=== PATIENT | male | born 1980 | race Caucasian/White ===

== ENCOUNTER 2017-03-14 17:57 | Emergency (ER) | payer OTHER ==
[~2017-03-14] VITALS: Ht 182.9 cm; Wt 136.5 kg
[~2017-03-14 17:57] MED LIST: ALDACTONE25 MG PO; BACTRIM DS TAB1 EACH PO; BUPRENORPHINE HC8 MG SL; CLINDAMYCIN HC300 MG PO; CYMBALTA20 MG; DOXYCYCLINE HY100 MG PO; EFFEXOR XR150 MG PO; EFFEXOR XR37.5 MG PO; HYDROCODON-ACE1 EA10 PO; HYDROCODON-ACE1 EAC3 PO; HYDROCODONE-IB1 EACH PO; IBUPROFEN800 MG PO; KEFLEX500 MG PO; KLONOPIN1 MG PO; LASIX20 MG PO; MELOXICAM15 MG PO; NAPROSYN500 MG PO; NORCO 5-325 TA1 EACH PO; PERCOCET 5-3251 EACH PO; PREDNISONE10 MG PO; PREDNISONE20 MG PO; SPIRONOLACTONE100 MG PO; VENLAFAXINE HCL75 MG PO; VICOPROFEN 2001 EACH PO
[2017-03-14] MEDS ORDERED: SULFAMETHOXAZO1 EAC1 PO (20:41)
[2017-03-14] MEDS ORDERED: CEPHALEXIN500 MG PO (22:53)
== END 2017-03-14 23:03 | disposition home or self-care (01) ==
LOC: ED 17:57
DX: S61.432A Puncture wound without foreign body of left hand, initial encounter (principal); L08.9 Local infection of the skin and subcutaneous tissue, unspecified; F41.9 Anxiety disorder, unspecified; F32.9 Major depressive disorder, single episode, unspecified; Z86.19 Personal history of other infectious and parasitic diseases; Z91.013 Allergy to seafood; Z88.5 Allergy status to narcotic agent; Z79.899 Other long term (current) drug therapy; Z86.14 Personal history of Methicillin resistant Staphylococcus aureus infection; X58.XXXA Exposure to other specified factors, initial encounter
CPT/HCPCS: 73130; 99283

== ENCOUNTER 2017-05-01 09:30 | Inpatient (IN) | payer OTHER ==
[~2017-05-01] VITALS: Ht 182.9 cm; Wt 136.0 kg
[~2017-05-01 09:30] MED LIST changes: +CEPHALEXIN500 MG PO; +SULFAMETHOXAZO1 EAC1 PO
--- NOTE | 2017-05-01 13:38 | NUR ---
REPORT RECEIVED FROM FREDI SMITH IN E.D.
--- NOTE | 2017-05-01 14:29 | NUR ---
PATIENT ADMITTED TO ROOM 119. IV FLAGYL INFUSING TO RIGHT ARM IV. VITALS ARE STABLE. PATIENT IS AFEBRILE, VOIDING TO URINAL. RIGHT LEG IS ELEVATED ON THREE PILLOWS. RIGHT CALF REDNESS IS OUTLINED, HEAT PACK PLACED TO REDNESS. PATIENT REPORTS 10/10 RIGHT CALF PAIN AND REQUESTED PAIN MEDICATION FROM DR. ACEVES. PATIENT ORIENTED TO CALL LIGHT AND ORDERING FOOD.
--- NOTE | 2017-05-01 15:59 | NUR ---
REPORT FROM KYRA RAI AT THIS TIME
--- NOTE | 2017-05-01 16:32 | NUR ---
Vancomycin per pharmacy, 1750mg IV q 8 hrs. Draw for vancomycin trough level 05/02/17 at 1630. (Prior to 5th dose)
--- NOTE | 2017-05-01 17:31 | NUR ---
PT ADMITTED THIS AFTERNOON FORM E.D., RIGHT LEG ELEVATED ON THREE PILLOWS, NORCO MANAGING PAIN AT TOLERABLE LEVEL AT THIS TIME. PICC LINE BEING PLACED AT THIS TIME BY HIREN SUE RN. HE HAS BEEN AFEBRILE, V/S STABLE. AGGRESSIVE ABX THERAPY. RED AREA AROUND WOUND TO RIGHT CALF OUTLINED ON ADMISSION
--- NOTE | 2017-05-01 18:56 | NUR ---
ASKED BY DR. ACEVES TO EVALUATE PATIENT FOR POTENTIAL PICC LINE PLACEMENT. AFTER REVIEWING PT'S CHART AND INTERVIEWING THE PATIENT, NO ABSOLUTE CONTRAINDICATIONS WERE IDENTIFIED. PT WAS ABLE TO SIGN THE CONSENT. PT DOES REPORT BEING A FORMER IV DRUG USER AND STATES HE HAS "HORRIBLE VEINS IN HIS ARMS". PT REPORTS NOT HAVING USED IV DRUGS IN ABOUT A YEAR. RIGHT ARM EVALUATED AND BOTH THE BRACHIAL AND THE BASILIC VEIN WERE NOTED TO BE GREATER THAN 8 FR USING SITE [employer] U/[employer]. ULTIMATELY THE BASILIC VEIN WAS CHOSEN. 4FR SINGLE LUMEN PICC WAS CHOSEN FOR THIS PATIENT. IV ACCESS WAS OBTAINED WITHOUT DIFFICULTY. GUIDEWIRE INSERTED INTO VEIN WITHOUT DIFFICULTY. [employer] GUIDE WAS USED AND INITIAL ADVANCEMENT OF CATHETER SHOWED THE CATHETER TIP TO BE HEADING UP, INSTEAD OF THE USUAL TURNED DOWN POSITION. PICC WAS PULLED BACK AND RE-INTRODUCED AFTER HAVING PATIENT PUT HIS CHIN TO HIS RIGHT EAR. THIS TIME ON SHERLOCK ULTRASOUND, INDICATOR WAS NOTED TO BE DROPPING DOWNWARDS INTHE APPROPRIATE DIRECTION. DRESSING WAS PLACED AT THIS TIME AND CHEST XRAY TAKEN. UPON FIRST CHEST XRAY, IT WAS NOTED THAT THE PICC LINE WAS HEADING UP THE NECK AND NOT IN THE CORRECT DIRECTION. PICC WAS PULLED BACK UNDER STERILE TECHNIQUE AND RE-ADVANCED WITH A REPEAT CXR TAKEN. AGAIN, PICC SHOWED TO BE IN THE WRONG DIRECTION. GUIDEWIRE WAS PULLED BACK WELL PICC LINE, AND PICC WAS AGAIN RE-INTRODUCED UNDER STERILE TECHNIQUE. THIRD CHEST XRAY TAKEN AND THIS TIME, PICC WAS NOTED TO BE IN THE CORRECT DIRECTION AND ENDING ABOVE THE HEART. PATIENT TOLERATED ALL OF THIS VERY WELL. FREDI LOCKE UPDATED ON THESE EVENTS. WAITING FINAL CHEST XRAY CONFIRMATION FROM DR. JEFFRIES AT THIS TIME. PATIENT ENCOURAGED TO ASK QUESTIONS AND EXPRESS ANY CONCERNS REGARDING HIS PICC LINE.
--- NOTE | 2017-05-01 19:36 | NUR ---
PT COMPLAINED THAT PAIN IS STARTING "TO GET BAD AGAIN." GAVE TORADOL PRN FOR PAIN. ALSO NOTIFIED DR HOLDER OF PATIENTS PAIN. NEW ORDERS RECIEVED AND PLACED IN CHART.
--- NOTE | 2017-05-01 19:39 | NUR ---
PENDING CHEST XRAY CONFIRMATION OF PICC LINE AT THIS TIME. REPORT GIVEN TO FREDI EDMONDS WHO IS CARING FOR PATIENT. RN AWARE OF NEED TO WAIT TO USE PICC UNTIL CHEST XRAY CONFIRMATION.
--- NOTE | 2017-05-01 20:09 | NUR ---
PT LAYING IN BED WATCHING TV WITH HIS SIGNIFICANT OTHER AT BEDSIDE. PT ALERT AND ORIENTED X4, PLEASENT DEMEANOR. RATES PAIN AT 8/10 IN RIGHT LEG. NORCO GIVEN, AND TORADOL 15MG GIVEN TO EQUAL THE INCREASED DOSE OF 30MG. LEG IS ELEVATED ON PILLOWS. DRY SEROSANGUENOUS DRAINAGE ON AND AROUND WOUND SITE. REDNESS IS MARKED AND HAS NOT MOVED OUTSIDE DEMARKATED LINES. PT STATES "IT LOOKS BETTER THAN IT DID THIS MORNING." PT HAS CALL LIGHT IN REACH. NO FURTHER NEEDS AT THIS TIME. FRESH ICE WATER AT BEDSIDE.
--- NOTE | 2017-05-01 20:47 | NUR ---
SPOKE WITH MARLA IN IMAGING REGARDING CONFIRMATION OF PICC PLACEMENT. HE CONFIRMED THAT RADIOLOGIST IS AWARE AND THAT SHE WILL BE GETTING TO IT SOON POSSIBLE.
--- NOTE | 2017-05-01 21:30 | NUR ---
PT'S PICC LINE CONFIRMED IN CORRECT PLACEMENT. RN ASSISTED INCIDENT HANDLER WITH DRAWING BLOOD CULTURE. PICC FLUSHING AND DRAWING BLOOD WELL. NO FURTHER NEEDS. CALL LIGHT IN REACH.
--- NOTE | 2017-05-02 00:05 | NUR ---
pt appears to be sleeping. rr wnl and unlabored.
--- NOTE | 2017-05-02 02:36 | NUR ---
PT COMPLAINED OF 7/10 PAIN IN HIS RIGHT LEG. REPORTS THAT HE BUMPED IT WITH HIS OTHER LET WHILE SLEEPING AND IT WOKE HIM UP, STARTED THROBBING AGAIN. GAVE NORCO FOR PAIN.
--- NOTE | 2017-05-02 03:54 | NUR ---
PT APPEARS TO BE SLEEPING. RR WNL AND UNLABORED.
--- NOTE | 2017-05-02 05:38 | NUR ---
PT HAD UNEVENTFUL NIGHT. SLEPT MAJORITY OF SHIFT. PAIN WELL CONTROLLED WITH NORCO. RIGHT LEG ELEVATED ON 2 PILLOWS, WOUND IS DRAINING SEROSANGENOUS DRAINAGE. REDNESS MARKED AND STAYING WITHIN THE DEMARKATED AREA THAT WAS DRAWN WHEN PT ARRIVED TO THE FLOOR. PT ALERT AND ORIENTED X4, FLAT AFFECT, BUT PLEASENT. COOPERATIVE. PICC CONFIRMED CORRECT PLACEMENT, GOOD BLOOD RETURN, INFUSING WNL. IV ANTIBIOTICS.
--- NOTE | 2017-05-02 06:53 | NUR ---
NURSE NOTIFIED RE BP.
--- NOTE | 2017-05-02 08:14 | NUR ---
PT UP TO RECLINER GOOD APPETITE, REPORTS PAIN / NORCO AND TORDOL GIVEN AT THIS TIME
--- NOTE | 2017-05-02 10:07 | NUR ---
PATIENT UP TO SHOWER WITH GIRLFRIEND ASSISTING. LINENS CHANGED ORAL CARE DONE. NO OTHER NEEDS AT THIS TIME.
--- NOTE | 2017-05-02 11:01 | NUR ---
MED REC COMPLETE WITH BIMART REFILL HISTORY AND PATIENT INTERVIEW.
--- NOTE | 2017-05-02 12:23 | NUR ---
PT SITTING UP IN RECLINER REPORTS PAIN 9/10 AFTER SHOWERING. TWO TABS NORCO GIVEN WELL 2MG PO ATIVAN FOR ANXIETY WITH MRI. PT REPORTS HAVING SHARP ABD PAIN RUQ AND LUQ. PT DECRIBES GAS PAIN WILL DISCUSS WITH .
--- NOTE | 2017-05-02 13:05 | NUR ---
PATIENT WENT DOWN TO X-RAY FOR AN MRI.
--- NOTE | 2017-05-02 13:24 | NUR ---
PT UP AMBULATING IN HALLS WITH PHYSICAL THERAPY HE REPORTS HE IS FEELING THE URGE TO VOID AND WILL ATTEMPT AFTER WORKING WITH PHYSICAL THERAPY
--- NOTE | 2017-05-02 13:27 | NUR ---
PT OFF THE UNIT AT THIS TIME TO MRI
--- NOTE | 2017-05-02 14:37 | NUR ---
PT SITTING UP IN RECLINER REPORTS THAT HIS ABD PAIN HAS IMPROVED. HE REPORTS HE DID PASS SMALL AMOUNT OF FLATUS.
--- NOTE | 2017-05-02 16:07 | NUR ---
LEFT ARM PICC DRESSING CHANGED.
--- NOTE | 2017-05-02 17:01 | NUR ---
PT REQUESTED PAIN MEDICATION TO STAFF, PT REQUESTED PAIN MEDICATION. RN TO ROOM PT SLEEPING, RR EVEN 16 BPM NO DISTRESS NOTED. PT APPEARS TO BE SLEEPING
--- NOTE | 2017-05-02 18:01 | NUR ---
PT HAD MRI TODAY, CONSULT WITH TO SURGERY TOMORROW A TO FOLLOW, NPO AFTER MIDNIGHT, ALSO CHANGE FLUIDS AT MIDNIGHT. HE HAS REQUESTED [facility] [employer] OFTEN AVAILABLE WAS GIVE 2MG ATIVAN FOR MRI ANXIETY, HAS BEEN DROWSY/SEDATE MOST SHIFT. WAS GIVEN 1 TAB NORCO LAST TO MONITOR FOR SEDATION. RIGHT CALF RED AREA RECEEDING FROM OUTLINE MARKED YESTURDAY ON ADMISSION. PICC LINE DRESSING CHANGED TODAY, GOOD BLOOD RETURN. INDEPENDENT IN ROOM.
--- NOTE | 2017-05-02 18:34 | NUR ---
PT SITTING UP IN RECLINER ALERT AT THIS TIME, REPORTS PAIN IS 8/10,SECOND TAB NORCO ADMINISTERED AT THIS TIME. EXPLAINED TO PT THAT ONLY ONE WAS GIVEN AT FIRST DUE TO SEDATION. PT SAID "YEAH, THATS BECAUSE OF THE ATIVAN" PT REPORTS THAT HE UNDERSTAND WHY ONLY ONE TAB GIVEN FIRST TO MONITOR.
--- NOTE | 2017-05-02 18:37 | NUR ---
PATIENT SITTING UP IN CHAIR WATCHING TV. CALL BUTTON IN REACH FRESH WATER IN CUP. NO OTHER NEEDS AT THIS TIME.
--- NOTE | 2017-05-02 22:01 | NUR ---
PT SITTING LAYING IN BED, WITH RIGHT LEG ELEVATED ON PILLOW. GIRLFRIEND IN ROOM. PT ALERT AND ORIENTED X4, PLEASENT DEMEANOR. DRY CRUSTY SEROSANGUENOUS DRAINAGE ON PUNCTURE SITE, DARK RED/BLACK SCAB COVERING. REDNESS HAS RECEDED FROM THE MARKED AREAS. PT RATES PAIN AT 8/10, GAVE NORCO AND TORADOL FOR PAIN. GAVE FRESH ICE WATER, PT EDUCATED ABOUT HIM HAVING NOTHING BY MOUTH AFTER MIDNIGHT, PT VERBALIZED UNDERSTANDING. CALL LIGHT IN REACH. NO FURTHER NEEDS.
--- NOTE | 2017-05-03 00:08 | NUR ---
pt appears asleep in his chair. rr wnl and unlabored. switched fluids per dr suh. took drinks off table. pt educated earlier in shift that he cannot eat or after midnight.
--- NOTE | 2017-05-03 01:24 | NUR ---
pt appear to be sleeping. rr wnl and unlabored. girlfriend asleep on sofa in room. pt is back in bed at this time. picc infusing wnl.
--- NOTE | 2017-05-03 03:48 | NUR ---
pt sitting at bedside. up to bathroom, independantly. steady on feet. pt complained of 8/10 pain, gave norco for pain. no further needs. call light in reach.
--- NOTE | 2017-05-03 05:40 | NUR ---
PT SLEPT ON AND OFF OVERNIGHT, MOVED FROM BED TO CHAIR A COUPLE OF TIMES. ALERT AND ORIENTED X4. NORCO WORKING WELL FOR PAIN. PT PLEASENT AND COOPERATIVE. REDNESS ON RIGHT LEG HAS RECEDED SINCE ADMIT. NPO SINCE MIDNIGHT. SURGERY SOMETIME TODAY TO FOLLOW. IV ANTIBIOTICS. INDEPENDANT IN ROOM.
--- NOTE | 2017-05-03 06:54 | NUR ---
pt appears to be sleeping. rr wnl and unlabored.
--- NOTE | 2017-05-03 07:15 | NUR ---
BEDSIDE REPORT RECIEVED FROM KENDAL, ASSUMING PATIENT CARE AT THIS TIME. PATIENT RESTING IN THE CHAIR, RIGHT LEG ELEVATED. REDNESS ON THE RIGTH INNER LEG MARKED AND WOUND IS DRAINING. HOT TO TOUCH.
--- NOTE | 2017-05-03 07:45 | NUR ---
PATIENT UP TO SHOWER WITH IRIS CLEANSE. GIRLFRIEND ASSISTING. LINENES CHANGED.ORAL CARE DONE.
--- NOTE | 2017-05-03 09:35 | NUR ---
REPORT GIVEN TO SURGERY NURSE. PATIENT OFF THE FLOOR TO SURGERY.
--- NOTE | 2017-05-03 12:00 | NUR ---
05/03/17 1200 Sandra Nicole 1150-PATIENT ARRIVED TO PACU ON 10L MASK O2 SAT 100% NONAROUSABLE. SB. DRESSING TO RIGHT LEG CDI GOOD WARMTH CAP REFILL AND PEDAL PULSE.
--- NOTE | 2017-05-03 12:34 | CONS ---
[facility] [address], [place] [address] Signed DATE OF CONSULTATION: 05/02/17 REFERRING PHYSICIAN: Alonzo Navas M.D. CHIEF COMPLAINT: Pain and swelling, right medial calf. HISTORY OF PRESENT ILLNESS Lazaro is a 37-year-old young man w hanh happens to work at a local [employer]. 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 He had a hook that was setting down when he tripped over some meat, it caught him in the midportion of his right medial calf. He did not think too much of it, but within a few days, it was swollen and draining and he went on initially Bactrim with no effect and he switched over to Keflex. It has continued to get worse and he has been through MRSA abscesses in the past associated with his IV drug abuse, so he came to the emergency room for evaluation. He was then admitted to our Internal Medicine service. He has been on Vancomycin, Levaquin, and Flagyl. The Internal Medicine service called me earlier in the day and an MRI had been ordered. He does have a 3 x 2 x 1.2 cm subcutaneous fluid collection on the anteromedial side of his mid right calf, but nothing involving the muscle underneath. Consequently, I was asked to see him as a general surgeon on-call. PAST MEDICAL HISTORY Hepatitis C virus , MRSA, peptic ulcer disease, anxiety, depression, spinal deterioration, and peripheral edema. PAST SURGICAL HISTORY Bilateral AC vein and cyst removal. SOCIAL HISTORY Does not smoke or drink. He did IV methamphetamines and heroin in the past. He has also abused narcotics in the past. He has been clean currently. He is to his , [place], at [phone]. He has 3 children and she has 2 children. He is not able to drive currently. He will not have his license for a while. He uses a taxi to go to and from work. RAOUL Stevenson, is his primary care provider. FAMILY HISTORY He said his mom is healthy, but there are lots of diabetes on the mom's side of family and he said there are lots of cancer on his dad's side of the family and his dad from pancreatic cancer. REVIEW OF SYSTEMS Lazaro had 10 systems reviewed, and include the pertinent positives in the above. ALLERGIES: Shellfish and shellfish derivatives along with tramadol. Electronically Signed By: SUNNY SANTIAGO MD 05/03/17 1234 PATIENT NAME: LAZARO FIGUEROA [facility] CONSULTATION DATE OF : 82 PHYSICIAN: SUNNY SANTIAGO MD REPORT #: [id number] REPORT IS CONFIDENTIAL AND NOT TO BE RELEASED WITHOUT AUTHORIZATION [facility] [address], [place] [address] Signed MEDICATIONS: Suboxone, Effexor XR, spironolactone, and Lasix p.r.n. edema. PHYSICAL EXAMINATION VITAL SIGNS: Blood pressure is 111/56, his heart rate is 51, respiratory rate 22, temperature is 98.2, he is 100% on room air. He is 6 feet tall and 135 kg. GENERAL: Lazaro is a 37-year-old gentleman who is sitting in his bedside chair asleep. His walked in just ahead of me and we were able to easily awaken him. He answers appropriately. LUNGS: Clear to auscultation. HEART: Regular rate and rhythm. ABDOMEN: Soft and flat. On the medial side of his mid right calf, he has a 3-4 cm raised area of skin with surrounding erythema. There is a black skin over that area and there appears to be a little blood with drainage. LABORATORY DATA His white blood cell count is 5, his hemoglobin is 10.8 with neutrophils of 57, platelets 200,000. Electrolytes unremarkable. BUN 9, creatinine 0.63. His wound culture from yesterday has gram-positive cocci and the blood cultures from yesterday are no growth to date. RADIOGRAPHIC STUDIES Chest x-ray per the PICC line shows that the line enters through the right upper extremity into the superior vena cava. The MRI of his right calf is reviewed from today and it shows a 3 x 2 x 1.2 cm subcutaneous fluid collection on the anteromedial side of his right calf. ASSESSMENT AND PLAN Lazaro is a 37-year-old gentlem an who presents with subcutaneous abscess on the anteromedial side of the right calf. He is on triple antibiotics currently with a previous history of methicillin-resistant Staphylococcus aureus. I explained to Lazaro and his it is very clear he is going to need this opened and drained in the operating room. He has been through this before as stated above. He knows the wound is going to be left open and packed and we will take deep wound cultures at the same time. It will heal in secondarily over weeks to several months. They have expressed understanding and wished to proceed. MD RENITA Pedersen/Shlomo Electronically Signed By: SUNNY SANTIAGO MD 05/03/17 1234 PATIENT NAME: LAZARO FIGUEROA [facility] CONSULTATION DATE OF : 82 PHYSICIAN: SUNNY SANTIAGO MD REPORT #: [id number] REPORT IS CONFIDENTIAL AND NOT TO BE RELEASED WITHOUT AUTHORIZATION [facility] [address] [place], [place] [address] Signed /[id number] cc: RAOUL Stevenson Electronically Signed By: SUNNY SANTIAGO MD 05/03/17 1234 PATIENT NAME: LAZARO FIGUEROA [facility] CONSULTATION DATE OF : 82 PHYSICIAN: SUNNY SANTIAGO MD REPORT #: [id number] REPORT IS CONFIDENTIAL AND NOT TO BE RELEASED WITHOUT AUTHORIZATION
--- NOTE | 2017-05-03 13:25 | NUR ---
PATIENT BACK TO FLOOR FROM SURGERY. TRANSFER TO BED WITH NO DIFFICULTY. DRESSING IN THE RIGHT LEG D/C/I CARISSA WRAP OVER DRESSING. REPORTS PAIN ON THE RIGHT LEG. PATIENT WAS MEDICATED IN PACU. WATER AND JUICE PROVIDED AND PATIENT TOLERATED WELL.
--- NOTE | 2017-05-03 14:05 | NUR ---
PATIENT SITTING UP IN CHAIR EATING WITH LEGS ELEVATED. ICE PACKS ON RIGHT LEG. GIRLFRIEND IN ROOM. CALL BUTTON IN REACH. NO OTHER NEEDS AT THIS TIME.
--- NOTE | 2017-05-03 14:15 | NUR ---
PATIENT RESTING IN THE CHAIR, REPORT MINIMAL PAIN. NO ACUTE DISTRESS. VS WNL. ICE PACK ON RIGHT LEG. PATIENT TOLERATED PO FLUID WILL, WILL ADVANCE DIET.
--- NOTE | 2017-05-03 16:11 | NUR ---
PATIENT SITTING IN CHAIR WITH LEGS ELEVATED. PATIENT VERY SLEEPY. ICE PACKS WHERE TAKEN OFF AND LEFT IN SINK. ELECTRIC WELDER PUT FRESH ICE BAGS BACK ONTO RIGHT LEG AND REMINDED PATIENT THAT IT IS IMPORTANT TO KEEP THE BAGS ON AND TO CALL IF NEW ONES ARE NEEDED. NO OTHER NEEDS AT THIS TIME CALL BUTTON IN REACH.
--- NOTE | 2017-05-03 17:30 | NUR ---
PATIENT RESTING IN THE CHAIR, REPORT 8/10 PAIN AT THE RIGHT LEG. PATIENT WAS MEDICATED. ICE PACK ON RIGHT LEG. IV ABX INFUSING. NO APPARENT DISTRESS.
--- NOTE | 2017-05-03 18:12 | NUR ---
PATIENT HAD AND I/D DONE ON THE RIGHT LEG TODAY. DRESSING TO BE CHANGED BID WITH RONEY FULL PATRICKNGHT. PICC LINE PATENT, FLUID IS INFUSING WELL. PATIENT IS ON VANCO, FLAGYL AND LEVAQUINE. NORCO AND TORADOL FOR PAIN CONTROL. ICE OVER DRESSING ON THE RIGHT LEG. ELEVATE RIGHT LEG. GOOD URINE OUTPUT. HAD A BM YESTERDAY.
--- NOTE | 2017-05-03 18:42 | NUR ---
PATIENT UP IN CHAIR WATCHING TV WITH GIRLFRIEND. ICE PACKS WERE OFF LEG. REMINDED HIM THAT IT IS IMPORTANT FOR HIM TO KEEP THEM ON. FRESH ICE PACKS GIVEN. NO OTHER NEEDS AT THIS TIME
--- NOTE | 2017-05-03 20:00 | NUR ---
RECEIVED REPORT AT 1900. FOUND PT SITTING IN CHAIR WITH AT BEDSIDE.
--- NOTE | 2017-05-03 22:30 | NUR ---
V/S ARE WDL. PAIN IS STILL NOT ADEQUATELY CONTROLLED WITH PRN PAIN MEDS AVAILABLE. DRESSING CHANGE WAS DONE AT 2200 PER ORDER. ALL LOBES ARE CLEAR. PO INTAKE IS ADEQUATE, THERE IS MINIMAL EDEMA IN RIGHT LOWER EXTREMETIE.
--- NOTE | 2017-05-04 01:09 | NUR ---
JUST GAVE PT 4MG OF PO DILAUDED. PT IS TRYING TO SLEEP.
--- NOTE | 2017-05-04 04:24 | NUR ---
PT IS SLEEPING AT THIS TIME.
--- NOTE | 2017-05-04 06:24 | NUR ---
AT START OF SHIFT PAIN CONTROL WAS AN ISSUE. 4MG OF PO DILAUDED Q4HRS IS WORKING WELL. DRESSING CHANGE WAS DONE AT 2200. WOUND IN CLEAN AND BLEEDING SOME. V/S ARE WDL. PO FLUID INTAKE IS GOOD. NO NEW ISSUES NOTED AT THIS TIME.
--- NOTE | 2017-05-04 07:15 | NUR ---
BEDSIDE HANDOFF REPORT RECEIVED FROM TUBE SKIVER RN. PT SLEEPING IN CHAIR, LEFT UNDISTURBED.
--- NOTE | 2017-05-04 09:59 | OR ---
[facility] [address] [place], [place] [address] Signed DATE OF PROCEDURE: 05/03/17 PREOPERATIVE DIAGNOSIS: Right mid leg anteromedial abscess. POSTOPERATIVE DIAGNOSIS: Right mid leg anteromedial abscess. PROCEDURES PERFORMED Incision and drainage, right leg abscess. Deep wound cultures. ESTIMATED BLOOD LOSS: None. INDICATIONS Lazaro is a 37-year-old gentleman who has a previous history of MRSA. He unfortunately was involved in IV drug abuse with methamphetamines and heroin in the past. He had the infected veins taken out of both antecubital fossa. More recently, though, he is clean of all drugs. He has weaned himself off narcotics and has been on Suboxone. He is doing well. 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 He had set the meat hook down on the top of the package and when he stepped over the package, the tip of the meat hook caught his anteromedial right calf at about the mid portion. He did not think much of it, but within a few days, it was infected and so he then eventually came to emergency room for evaluation. He tried Bactrim and Keflex and that did not help. He was admitted to the Internal Medicine Service and started on not only Vancomycin but Levaquin and Flagyl as well. He underwent an MRI of his leg and it showed the subcutaneous abscess, but not involving any underlying muscle planes. Consequently, I was asked to see him as a general surgeon reservations specialist. I met with Lazaro and his yesterday and explained them we would go to OR and do an I and D of his abscess, in fact, he has black necrotic skin over that area which will all be excised. It will be left open and allowed to heal in secondarily over the course of a couple of months. He is very familiar with this whole process. He understands there is risk including, but not limited to bleeding, infection, scarring, change in contour of the skin as well as recurrent abscess in the same or other locations. He had expressed understanding and wished to proceed. PROCEDURE IN DETAIL I had met with Lazaro in our preop area and we agreed that it was very easy to identify the abscess on his right medial calf. He was taken in the operating room and placed in the supine position under monitored anesthesia care. He was already on his preoperative antibiotics along with subcutaneous heparin as previously ordered. He was then prepped and draped in the usual sterile fashion. We simply cut all the black necrotic skin off from over the abscess and evacuated all of the pus. We took our deep cultures and then irrigated the wound until clean. The wound is probably 2 cm wide x 3 cm in length and it Electronically Signed By: SUNNY SANTIAGO MD 05/04/17 0959 PATIENT NAME: LAZARO FIGUEROA [facility] OPERATIVE REPORT DATE OF : 82 PHYSICIAN: SUNNY SANTIAGO MD REPORT #: [id number] REPORT IS CONFIDENTIAL AND NOT TO BE RELEASED WITHOUT AUTHORIZATION [address] [address] Signed lies transversely. We checked and we did not find any pockets underneath or any area of pus that traveled away from the main portion of the wound. We then filled the wound with Dakin's soaked gauze and covered that with dry ABD and a 6-inch Jackson wrap around his calf. He was then transferred over to his hospital bed and taken into recovery room in stable condition. MD RENITA Pedersen/Modl /[id number] cc: RAOUL Stevenson Electronically Signed By: SUNNY SANTIAGO MD 05/04/17 0959 PATIENT NAME: LAZARO FIGUEROA [facility] REPORT DATE OF : 82 PHYSICIAN: SUNNY SANTIAGO MD REPORT #: [id number] REPORT IS CONFIDENTIAL AND NOT TO BE RELEASED WITHOUT AUTHORIZATION
[2017-05-04] MEDS ORDERED: LEVOFLOXAC750 MG/150 PO (10:04)
[2017-05-04] MEDS ORDERED: CULTURELLE1 EAC1 PO (10:05)
[2017-05-04] MEDS ORDERED: LIDODERM1 EACH TD (10:05)
[2017-05-04] MEDS ORDERED: SODIUM CHLORI1000 ML IRRIGATION (10:09)
--- NOTE | 2017-05-04 10:42 | NUR ---
PT RESTING IN CHAIR. PT RATING PAIN 8/10, GIVEN 2MG IV DILAUDID BEFORE DRESSING CHANGE. PT LUNG SOUNDS CLEAR, ON ROOM AIR, O2 SATS 98%. PT TOLERATING REGULAR DIET, DENIES NAUSEA. DRESSING CHANGE TO RLE COMPLETED, WASHED WITH NORMAL SALINE, OLD DRESSING SOAKED, GAUZE SOAKED IN DAKINS APPLIED TO WOUND BED, BACTROBAN APPLIED TO SURROUNDING SKIN, ABD AND CARISSA TO COVER. TEACHING COMPLETED WITH PT AND SIGNIFICANT OTHER, REQUESTING TYPED OUTLINE OF INSTRUCTIONS. IV ABX INFUSING. PT DENIES OTHER NEEDS AT THIS TIME.
== END 2017-05-04 12:00 | disposition home or self-care (01) | DRG 605 ==
LOC: ED 09:30 → MS 13:15
PROVIDERS: Colon & Rectal Surgery; ADMIT Internal Medicine
PROC: 05H533Z Insertion of Infusion Device into Right Subclavian Vein, Percutaneous Approach (ICD-10-PCS; 2017-05-03)
PROC: 0J9N0ZX Drainage of Right Lower Leg Subcutaneous Tissue and Fascia, Open Approach, Diagnostic (ICD-10-PCS; principal; 2017-05-03 11:30)
DX: S81.811A Laceration without foreign body, right lower leg, initial encounter (principal); L03.115 Cellulitis of right lower limb; L02.415 Cutaneous abscess of right lower limb; B19.20 Unspecified viral hepatitis C without hepatic coma; D72.1 Eosinophilia; B95.2 Enterococcus as the cause of diseases classified elsewhere; B95.4 Other streptococcus as the cause of diseases classified elsewhere; Z86.14 Personal history of Methicillin resistant Staphylococcus aureus infection; W26.8XXA Contact with other sharp object(s), not elsewhere classified, initial encounter; Y92.63 Factory as the place of occurrence of the external cause; Y99.0 Civilian activity done for income or pay
CPT/HCPCS: 00300; 36415; 36556; 71010; 73720; 80048; 80053; 80202; 83605; 85025; 87040; 87070; 87075; 87077; 87186; 87205; 90471; 90715; 96365; 96375; 99285; A9579; C1751; J1170; J1644; J1885; J1956; J2250; J2405; J2704; J2765; J3010; J3370; J7030; J7060; J7120

== ENCOUNTER 2017-06-20 16:08 | Emergency (ER) | payer OTHER ==
[~2017-06-20] VITALS: Ht 182.9 cm; Wt 136.0 kg
[~2017-06-20 16:08] MED LIST changes: +CULTURELLE1 EAC1 PO; +LEVOFLOXAC750 MG/150 PO; +LIDODERM1 EACH TD; +SODIUM CHLORI1000 ML IRRIGATION
[2017-06-20] MEDS ORDERED: BACTRIM DS TAB1 EACH PO (22:55)
== END 2017-06-20 23:10 | disposition home or self-care (01) ==
LOC: ED 16:08
PROC: 0H9LXZZ Drainage of Left Lower Leg Skin, External Approach (ICD-10-PCS; principal; 2017-06-20)
DX: L02.416 Cutaneous abscess of left lower limb (principal); Z86.14 Personal history of Methicillin resistant Staphylococcus aureus infection; F41.9 Anxiety disorder, unspecified; F32.9 Major depressive disorder, single episode, unspecified; F17.200 Nicotine dependence, unspecified, uncomplicated; Z88.5 Allergy status to narcotic agent; Z91.013 Allergy to seafood; Z79.899 Other long term (current) drug therapy
CPT/HCPCS: 10061; 76882; 99284

== ENCOUNTER 2017-09-13 13:42 | Emergency (ER) | payer BC, OTHER ==
[~2017-09-13] VITALS: Ht 182.9 cm; Wt 136.1 kg
[2017-09-13] MEDS ORDERED: K-TAB ER20 MEQ PO (15:02)
[2017-09-13] MEDS ORDERED: LASIX40 MG PO (15:02)
== END 2017-09-13 15:26 | disposition home or self-care (01) ==
LOC: ED 13:42
DX: R60.0 Localized edema (principal); F41.9 Anxiety disorder, unspecified; F32.9 Major depressive disorder, single episode, unspecified; F17.200 Nicotine dependence, unspecified, uncomplicated; Z86.19 Personal history of other infectious and parasitic diseases; Z91.013 Allergy to seafood; Z88.6 Allergy status to analgesic agent; Z79.899 Other long term (current) drug therapy
CPT/HCPCS: 71046; 81001; 99283

== ENCOUNTER → 2018-05-05 | Emergency (ER) | payer OTHER ==
[~2018-05-05] VITALS: Ht 182.9 cm; Wt 145.2 kg
[~2018-05-05] MED LIST changes: +K-TAB ER20 MEQ PO; +LASIX40 MG PO
== END ==
LOC: ED 20:15
PROC: 0H9LXZZ Drainage of Left Lower Leg Skin, External Approach (ICD-10-PCS; principal; 2018-05-05)
DX: L02.416 Cutaneous abscess of left lower limb (principal); F17.200 Nicotine dependence, unspecified, uncomplicated; Z91.013 Allergy to seafood; Z88.5 Allergy status to narcotic agent
CPT/HCPCS: 10060; 99283

== ENCOUNTER 2019-09-10 11:54 | Emergency (ER) | payer OTHER ==
[~2019-09-10] VITALS: Ht 182.9 cm; Wt 140.6 kg
--- OUTSIDE RECORDS SUMMARY | ~2019-09-10 | XMS | Encounter Summary ---
Demographics + + + | Address | [address] | | | [place] [address] | + + + | Home Phone | | + + + | Preferred Language | Unknown | + + + | Marital Status | Unknown | + + + | Restorationism Affiliation | Unknown | + + + | Race | Unknown | + + + | Ethnic Group | Unknown | + + + Author + + + | Author | [facility] | | | and [place] | + + + | Organization | [facility] | | | and [place] | + + + | Address | Unknown | + + + | Phone | Unavailable | + + + Support + + +---------+ + | Name | Relationship | Address | Phone | + + +---------+ + | Listed None | ECON | Unknown | | + + +---------+ + Care Team Providers + +------+ + | Care Artist'S Model Name | Role | Phone | + +------+ + | Susan Fowler NP | PCP | | + +------+ + Encounter Details +--------+ + + + + | Date | Type | Department | Care Team | Description | +--------+ + + + + | 07/22/ | Hospital | C GENERIC IP | Conversion | Pain | | 2015 | Encounter | CONVERSION [address] | Transaction, | | | | | [address] | Provider Unknown | | | | | [place], [place] | [phone] | | | | | [address] | | | | | | | [...] | + +--------+ + + + | CT CHEST WO CONTRAST | Routin | 06/12/2015 | | Results for this | | | e | 7:45 PM | | procedure are in the | | | | PDT | | results section. | + +--------+ + + + documented in this encounter Results CT Chest wo Contrast (06/12/2015 7:45 PM PDT) + + | Specimen | + + | | + + + + + | Narrative | Performed At | + + + | This is a non-reportable procedure without a radiologist report and | | | is used for image storage only | | + + + + + | Procedure Note | + + | Toño Arredondo Branden - 04/19/2019 11:30 AM PDT This is a non-reportable procedure | | without a radiologist report and isused for image storage only | + + documented in this encounter Visit Diagnoses + + | Diagnosis | + + | Pain Generalized pain | + + documented in this encounter"
--- OUTSIDE RECORDS SUMMARY | ~2019-09-10 | XMS | Encounter Summary ---
Demographics + + + | Address | [address] | | | [place] [address] | + + + | Home Phone | | + + + | Preferred Language | Unknown | + + + | Marital Status | Single | + + + | Buddhism Affiliation | PRO | + + + | Race | White | + + + | Ethnic Group | Not or | + + + Author + + + | Author | [facility] | + + + | Organization | [facility] | + + + | Address | Unknown | + + + | Phone | Unavailable | + + + Support + + +---------+ + | Name | Relationship | Address | Phone | + + +---------+ + | None Per Pt | ECON | Unknown | Unavailable | + + +---------+ + Care Team Providers + +------+ + | Care Cigarette Making Examiner Name | Role | Phone | + +------+ + | Susan Fowler NP | PCP | | + +------+ + Encounter Details +--------+ + + + + | Date | Type | Department | Care Team | Description | +--------+ + + + + | 09/15/ | Document-Sc | Health Information | Unknown . | | | 2015 | anned | Services [address] | | | | | | [address] | | | | | | Mailcode: [id number] | | | | | | [facility] | | | | | | [place], [place] | | | | | | [address] | | | | | | [phone] | | | +--------+ + + + [...] | + +--------+ + + + | RADIOLOGY | | 09/15/2015 | | Results for this | | | | 12:00 AM | | procedure are in the | | | | PST | | results section. | + +--------+ + + + documented in this encounter Results RADIOLOGY (09/15/2015 12:00 AM PST) + + + | Narrative | Performed At | + + + | | | + + + documented in this encounter Visit Diagnoses Not on filedocumented in this encounter"
--- OUTSIDE RECORDS SUMMARY | ~2019-09-10 | XMS | Encounter Summary ---
Demographics + + + | Address | [address] | | | [place] [address] | + + + | Home Phone | | + + + | Preferred Language | Unknown | + + + | Marital Status | Single | + + + | Jew Affiliation | PRO | + + + | Race | White | + + + | Ethnic Group | Not or | + + + Author + + + | Author | [facility] | + + + | Organization | [facility] | + + + | Address | Unknown | + + + | Phone | Unavailable | + + + Support + + +---------+ + | Name | Relationship | Address | Phone | + + +---------+ + | None Per Pt | ECON | Unknown | Unavailable | + + +---------+ + Care Team Providers + +------+ + | Care Driftman Name | Role | Phone | + +------+ + | Susan Fowler CHUTE BUILDER | PCP | | + +------+ + Reason for Visit Consultation (Routine) +--------+ + + + + + | Status | Reason | Specialty | Diagnoses / | Referred By | Referred To | | | | | Procedures | Contact | Contact | +--------+ + + + + + | Closed | Specialty | Neurological | Diagnoses | Malcolm, | Vanita, | | | Services | Surgery | | Susan Lopes, | Mona Galvan MD | | | Required | | Degeneration | CHUTE BUILDER Good | [address] | | | | | of thoracic | [address] | [address] | | | | | or | [address] | [place], [place] | | | | | thoracolumba | [address] | [address] | | | | | r | [address] | Phone: | | | | | intervertebr | [address], | [phone] | | | | | al disc | [place] [address] | 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 | | | | | | sis of spine | Fax: | | | | | | INS: [place] | [phone] | | +--------+ + + + + + Encounter Details +--------+---------+ + + + | Date | Type | Department | Care Team | Description | +--------+---------+ + + + | 12/17/ | Office | Neurosurgery [address] | Mona Waldron, | Scoliosis (and | | 2014 | Visit | [address] | [address] | kyphoscoliosis), | | | | Mailcode: [id number] | [facility] [place] | idiopathic (Primary | | | | [facility] | [address] | Dx) | | | | [place], [place] | [phone] | | | | | [address] | | | | | | [phone] | | | +--------+---------+ + + + Social History + +-------+ [...] + + documented as of this encounter Progress Notes Annalisa Bruner LPN - 12/17/2014 1:59 PM PDTPatient did not arrive to this appointment E lectronically signed by Annalisa Bruner LPN at 12/17/2014 2:00 PM PDTdocumented in this en counter Plan of Treatment Not on filedocumented as of this encounter Visit Diagnoses + + | Diagnosis | + + | Scoliosis (and kyphoscoliosis), idiopathic - Primary | + + documented in this encounter"
--- OUTSIDE RECORDS SUMMARY | ~2019-09-10 | XMS | Clinical Summary ---
Demographics + + + | Address | [address] | | | [place] [address] | + + + | Home Phone | | + + + | Preferred Language | Unknown | + + + | Marital Status | Unknown | + + + | Restorationism Affiliation | Unknown | + + + | Race | Unknown | + + + | Ethnic Group | Unknown | + + + Author + + + | Author | [facility] | | | and [place] | + + + | Organization | [facility] | | | and [...] Team Providers + +------+ + | Care Single Ending Machine Operator Name | Role | Phone | + +------+ + | Susan Fowler NP | PCP | | + +------+ + Allergies Not on File Medications Not on file Active Problems Not [...] recent travel history available. | + + Last Filed Vital Signs Not on file Plan of Treatment + + + + + | Health Maintenance | Due Date | Last Done | Comments | + + + + + | Vaccine: | | | | | Dtap/Tdap/Td (1 - | 2 | | | | Tdap) | | | | + + + + + | Vaccine: Influenza | | | | | (#1) | 9 | | | + + + + + Results Not on filefrom Last 3 Months Insurance + +--------+ +--------+ +---------+--------+ | Payer | Benefi | Subscriber | Effect | Phone | Address | Type | | | t Plan | ID | rolo | | | | | | / | | Dates | | | | | | Group | | | | | | + +--------+ +--------+ +---------+--------+ | [employer] | MODA | [id number] | 05/06/20 | [phone] | | Medica | | MEDICAID HMO | HEALTH | | 14-Pre | 1 | | id | | | MD[place] | | sent | | | | | | [place] | | | | | | + +--------+ +--------+ +---------+--------+ + +--------+ +--------+ + + | Guarantor Name | Accoun | Relation to | Date | Phone | Billing Address | | | t Type | Patient | of | | | | | | | | | | + +--------+ +--------+ + + | Lazaro Cuenca | Person | Self [birth year] | [address] | | | al/Fam | | 1980 | [phone] | [address] [place] | | | beau | | | 2 (Home) | [address] | + +--------+ +--------+ + + Advance Directives + + + + + | Type | Date Recorded | Patient | Explanation | | | | Electronic Security Technician | | + + + + + | Power of | | | | | Acute Dialysis Nurse | | | | + + + + + | Advance | | | | | Directive | | | | + + + + +"
--- OUTSIDE RECORDS SUMMARY | ~2019-09-10 | XMS | Encounter Summary ---
Demographics + + + | Address | [address] | | | [place] [address] | + + + | Home Phone | | + + + | Preferred Language | Unknown | + + + | Marital Status | Single | + + + | Mu-Ism Affiliation | PRO | + + + | Race | White | + + + | Ethnic Group | Not or | + + + Author + + + | Author | [facility] | + + + | Organization | [facility] | + + + | Address | Unknown | + + + | Phone | Unavailable | + + + Support + + +---------+ + | Name | Relationship | Address | Phone | + + +---------+ + | None Per Pt | ECON | Unknown | Unavailable | + + +---------+ + Care Team Providers + +------+ + | Care Colorman Name | Role | Phone | + +------+ + | Susan Fowler NP | PCP | | + +------+ + Encounter Details +--------+ + + + + | Date | Type | Department | Care Team | Description | +--------+ + + + + | 08/09/ | Office | [facility] | Chuck Nguễyn, | Progress Note | | 2013 | Visit-Trans | E [address] | MD [address] | | | | [address] | [address] | [place] | | | | | [address] | [address] | | | | | | [phone] | | | | | | | [...] documented as of this encounter Progress Notes Chuck Nguyễn MD - 08/10/2014 5:[address] [facility]S [facility]LTATION [address], [place] [address] LAZARO FIGUEROA DATE OF CONSULTATION: REQUESTING PHYSICIAN(S): Elis Crandall M.D. REPORT TITLE: Internal Medicine Consultation REASON FOR CONSULTATION: Second opinion regarding this patient's cellulitis on his hand. HISTORY OF PRESENT ILLNESS: Lazaro Figueroa is a 34-year-old who comes in with left hand symptoms. He was clean for 18 months and then last week he began injecting multiple drugs in his left hand. He has injected heroin, cocaine, and meth into that hand and has tracks there. He has developed increasing redness. He presents with swelling of the left hand and redness. No fevers or chills. Dr. Crandall has evaluated the patient and is considering discharge, but would like my opinion before doing so. CURRENT MEDICINES: None. ALLERGIES: NONE. REVIEW OF SYSTEMS: No chills, no fevers. PHYSICAL EXAMINATION: A focused exam on the patient's left upper extremity. GENERAL: The patient is in no acute distress. SKIN: Has multiple tattoos. VITAL SIGNS: Blood pressure 162/95, heart rate 76, respirations 18, O2 saturation 100%, temperature 37. EXTREMITIES: The left hand does have multiple track botello, and there is faint erythema over the dorsum of the hand. He has multiple small skin scabs on both hands that look fairly similar. The hand is not tender. It is slightly warm to the touch and predominantly over the dorsum of the hand on the left hand. DATA REVIEW: White count of 7.9, hemoglobin 13.1, hematocrit 38.4, platelet count 259. Sodium 137, potassium 4.1, bicarb 24, BUN 8, creatinine 0.78, glucose 78. Urinalysis by clean catch is negative. Urine drug screen positive for amphetamine, positive for morphine. Xray of hand and arm are negative for bone or soft tissue air ASSESSMENT: Cellulitis, left hand, from intravenous drug injection. The patient had no previous history of visits here, with no known history of methicillin- resistant Staphylococcus aureus. RECOMMENDATIONS: 1. Discharge to home. 2. Cephalexin 500 mg q.6 hours for 7 days. LAZARO FIGUEROA [id number] : 81 [id number] ADMIT DATE: 3. Bactrim DS 800/162 tablets every 12 hours for 7 days. 4. Keep arm elevated as much as possible. 5. If fevers, chills, increasing redness, or increasing pain, he is to return for further evaluation. EZEQUIEL/Buddy /[id number] Electronically Signed 08/10/14 0747 MD CAROLINA Chaidez PAUL A [id number] : 81 [id number] ADMIT DATE: documente d in this encounter Plan of Treatment Not on filedocumented as of this encounter Visit Diagnoses Not on filedocumented in this encounter"
--- OUTSIDE RECORDS SUMMARY | ~2019-09-10 | XMS | Encounter Summary ---
Demographics + + + | Address | [address] | | | [place] [address] | + + + | Home Phone | | + + + | Preferred Language | Unknown | + + + | Marital Status | Single | + + + | Mosque Affiliation | PRO | + + + [...] Team Providers + +------+ + | Care Deputy Sheriff Chief Name | Role | Phone | + +------+ + | Susan Fowler NP | PCP | | + +------+ + Encounter Details +--------+ + + + + | Date | Type | Department | Care Team | Description | +--------+ + + + + | 09/15/ | Document-Sc | Health Information | Unknown . | | | 2015 | anned | Services [address] | | | | | | [address] | | | | | | Mailcode: [id number] | | | | | | [facility] | | | | | | [place], [place] | | | | | | [address] | | | | | | [phone] | | | +--------+ + + + [...]
--- OUTSIDE RECORDS SUMMARY | ~2019-09-10 | XMS | Encounter Summary ---
Demographics + + + | Address | [address] | | | [place] [address] | + + + | Home Phone | | + + + | Preferred Language | Unknown | + + + | Marital Status | Single | + + + | Gnosticism Affiliation | PRO | + + + | Race | White | + + + | Ethnic Group | Not or | + + + Author + + + | Author | [facility] | + + + | Organization | [facility] | + + + | Address | Unknown | + + + | Phone | Unavailable | + + + Support + + +---------+ + | Name | Relationship | Address | Phone | + + +---------+ + | None Per Pt | ECON | Unknown | Unavailable | + + +---------+ + Care Team Providers + +------+ + | Care Electroplating Worker Name | Role | Phone | + [...] [address] | | | | | | [place] | | | | | | [address] | | | +--------+ + + + [...]
--- OUTSIDE RECORDS SUMMARY | ~2019-09-10 | XMS | Clinical Summary ---
Demographics + + + | Address | [address] | | | [place] [address] | + + + | Home Phone | | + + + | Preferred Language | Unknown | + + + | Marital Status | Single | + + + | Sikhism Affiliation | PRO | + + + | Race | White | + + + | Ethnic Group | Not or | + + + Author + + + | Author | [facility] | + + + | Organization | [facility] | + + + | Address | Unknown | + + + | Phone | Unavailable | + + + Support + + +---------+ + | Name | Relationship | Address | Phone | + + +---------+ + | None Per Pt | ECON | Unknown | Unavailable | + + +---------+ + Care Team Providers + +------+ + | Care Pharmacy Informatics Specialist Name | Role | Phone | + +------+ + | Susan Fowler NP | PCP | | + +------+ + Source Comments VIVIAN is fully live on both [facility] and [facility] Allergies + + + + + + | Active Allergy | Reactions | Severity | Noted | Comments | | | | | Date | | + + + + + + | Tramadol | Seizures | | 12/10/19 | | | | | | 16 | | + + + + + + Medications + +-----+ +---------+------+------+-------+ | Medication | Sig | Dispensed | Refills | Star | End | Statu | | | | | | t | Date | s | | | | | | Date | | | + +-----+ +---------+------+------+-------+ | ALPRAZolam XR 1 mg | | | 1 | 03/0 | | Activ | | oral tablet | | | | 9/20 | | e | | extended release 24 | | | | 16 | | | | hr | | | | | | | + +-----+ +---------+------+------+-------+ | oxyCODONE, | | | 0 | 03/1 | | Activ | | immediate release, | | | | 6/20 | | e | | 15 mg oral tablet | | | | 16 | | | + +-----+ +---------+------+------+-------+ | DULoxetine 30 mg | | | 2 | 03/0 | | Activ | | oral capsule,delayed | | | | /20 | | e | | release(DR/EC) | | | | 16 | | | + +-----+ +---------+------+------+-------+ Active Problems No known active problems Social History + +-------+ +--------+------+ | Tobacco [...] | + + Last Filed Vital Signs + + + [...] | | + + + + + Plan of Treatment + + + + + | Health Maintenance | Due Date | Last Done | Comments | + + + + + | Pneumococcal | | | | | vaccination (1 of 1 | 7 | | | | - PPSV23) | | | | + + + + + | Influenza (Flu) | | | | | vaccination (#1) | 9 | | | + + + + + Results Not on filefrom Last 3 Months Insurance + +--------+ +--------+-------+---------+--------+ | Payer | Benefi | Subscriber | Effect | Phone | Address | Type | | | t Plan | ID | rolo | | | | | | / | | Dates | | | | | | Group | | | | | | + +--------+ +--------+-------+---------+--------+ | [employer]ICAID | TE[employer]ER | xxxxxxxx | 06/15/ | | | Medica | | | [place] | | 2015-P | | | id | | | [place] | | resent | | | | + +--------+ +--------+-------+---------+--------+ + +--------+ +--------+ + + | Guarantor Name | Accoun | Relation to | Date | Phone | Billing Address | | | t Type | Patient | of | | | | | | | | | | + +--------+ +--------+ + + | Lazaro Cuenca | Person | Self | [birth year] | [address] | | | al/Fam | | 1980 | [phone] | [place] [address] | | | beau | | | 4 (Home) | | + +--------+ +--------+ + +"
--- OUTSIDE RECORDS SUMMARY | ~2019-09-10 | XMS | Clinical Summary ---
Demographics + + + | Address | [address] | | | [place] [address] | + + + | Home Phone | | + + + | Preferred Language | Unknown | + + + | Marital Status | Unknown | + + + | Orthodoxy Affiliation | Unknown | + + + | Race | Unknown | + + + | Ethnic Group | Unknown | + + + Author + + + | Author | [facility] | | | and [place] | + + + | Organization | [facility] | | | [...] Team Providers + +------+ + | Care Manager Information Name | Role | Phone | + [...] | [employer] | MODA | [id number] | 05/06/20 | [phone] | | Medica | | MEDICAID HMO [...] [place] | | | 2 (Home) | [address] | + +--------+ +--------+ + + Advance Directives + + + + + | Type | Date Recorded | Patient | Explanation | | | | Register In Chancery | | + + + + + | Power of | | | | | Warehouse Hand | | | | + + + + + | Advance | | | | | Directive | | | | + + + + +"
--- OUTSIDE RECORDS SUMMARY | ~2019-09-10 | XMS | Encounter Summary ---
Demographics + + + | Address | [address] | | | [place] [address] | + + + | Home Phone [...] + + + | Author | [facility] | + + + | Organization | [facility] | + + + | Address | Unknown | + + + | Phone | Unavailable | + + + Support + + +---------+ + | Name | Relationship | Address | Phone | + + +---------+ + | None Per Pt | ECON | Unknown | Unavailable | + + +---------+ + Care Team Providers + +------+ + | Care Music Manager Name | Role | Phone | + +------+ + | Susan Fowler CONTROLS DESIGNER | PCP | | + +------+ + [...] | s kyphosis | [address] | [place], [place] | | | | | Thoracic | [place], [place] | [address] | | | | | spondylosis | [address] | Phone: | | | | | with | Phone: | [phone] | | | | | myelopathy | [phone] | Fax: | | | | | Deconditione | Fax: | [phone] | | | | | d low back | [phone] | | | | | | Procedures [...] | | | | [address] | [address] | | | | | | s kyphosis | [address] | | | | | | Thoracic | [place], [place] | | | | | | spondylosis | [address] | | | | | | with | Phone: | | | | | | myelopathy | [phone] | | | | | | Deconditione | Fax: | | | | | | d low back | [phone] | | | | | | Procedures [...] Closed | | Orthopedics | Diagnoses | [place], | [place], | | | | | 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, | 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 | CONTROLS DESIGNER Jaiden | MD [address] | | | | | sis of | Yvonne | [address] | | | | | spine, site | [address] | [place], [place] | | | | | unspecified | [address] | [address] | | | | | | [address] | Phone: | | | | | | [address], | [phone] | | | | | | [place] [address] | Fax: | | | | | | Phone: | [phone] | | | | | | [phone] | | | | | | | Fax: | | | | | | | [phone] | | +--------+--------+ + + + + Encounter Details +--------+---------+ + + + | Date | Type | Department | Care Team | Description | +--------+---------+ + + + | 12/09/ | Office | Orthopaedics at | Tj Elise | Chronic mid back | | 2016 | Visit | [facility] [address] | Rodrigo Morales MD [address] | pain (Primary Dx); | | | | [address] | [address] | [facility] | | | | Mailcode: [id number] | [facility] [place] | kyphosis; Thoracic | | | | [facility] | [address] | spondylosis with | | | | [place], [place] | [phone] | myelopathy; | | | | [address] | | Deconditioned low | | | | [phone] | | back | +--------+---------+ + + [...] Tramadol Seizures Social Hx: 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 Weekly physical activity regimen [...] time. Consult to external PT. Consult to [facility]. RTC in 3-6 months or [...]
--- OUTSIDE RECORDS SUMMARY | ~2019-09-10 | XMS | Clinical Summary ---
Demographics + + + | Address | [address] | | | [place] [address] | + + + | Home Phone | | + + + | Preferred Language | Unknown | + + + | Marital Status | | + + + | Denominational Affiliation | Unknown | + + + | Race | Unknown | + + + | Ethnic Group | Unknown | + + + Author + + + | Author | [facility] (Historical as of | | | 04-20-19) | + + + | Organization | [facility] (Historical as of | | | 04-20-19) [...] Team Providers + +------+ + | Care Company Tanker Truck Driver Name | Role | Phone | + +------+ + | Susan Fowler SUPERCHARGER REPAIR SUPERVISOR | PP | Unavailable | + +------+ [...] +------+-------+ + | MEDICAID | JENELLE | [id number] | | | [address] | | | N | | | | [place] | | | [place] | | | | [address] | | | CONCERT MANAGER | | | | | + +--------+ [...] | be[address] | | | [address] | [address] | + +--------+ +--------+ + +"
--- OUTSIDE RECORDS SUMMARY | ~2019-09-10 | XMS | Encounter Summary ---
Demographics + + + | Address | [address] | | | [place] [address] | + + + | Home Phone | | + + + | Preferred Language | Unknown | + + + | Marital Status | Unknown | + + + | Advent Affiliation | Unknown | + + + | Race | Unknown | + + + | Ethnic Group | Unknown | + + + Author + + + | Author | [facility] | | | and [place] | + + + | Organization | [facility] | | | [...] Team Providers + +------+ + | Care Barrel Header Name | Role | Phone | + [...] Provider Unknown | | | | | [place], [place] | [phone] | | | | | [address] | | | | | | | [...]
--- OUTSIDE RECORDS SUMMARY | ~2019-09-10 | XMS | Encounter Summary ---
Demographics + + + | Address | [address] | | | [place] [address] | + + + | Home Phone | | + + + | Preferred Language | Unknown | + + + | Marital Status | Single | + + + | Roman Catholic Affiliation | PRO | + + + [...] Team Providers + +------+ + | Care Online Content Coordinator Name | Role | Phone | + [...] [place] | | | | | [address] | [address] | | | | | | [phone] | | | | | | | [...] Chuck Nguyễn MD - 08/10/2014 5:42 AM [facility] CONS ULTATION [address], [place] [address] LAZARO FIGUEROA DATE OF CONSULTATION: REQUESTING PHYSICIAN(S): [...] q.6 hours for 7 days. LAZARO FIGUEROA [id number] : 81 [id number] ADMIT DATE: 3. Bactrim DS 800/162 tablets every 12 hours for 7 days. 4. Keep arm elevated as much as possible. 5. If fevers, chills, increasing redness, or increasing pain, he is to return for further evaluation. EZEQUIEL/Buddy /[id number] Electronically Signed 08/10/14 0747 MD CAROLINA Chaidez PAUL A [id number] : 81 [id number] ADMIT DATE: documente d in this encounter Plan of Treatment Not on filedocumented as of this encounter Visit Diagnoses Not on filedocumented in this encounter"
--- OUTSIDE RECORDS SUMMARY | ~2019-09-10 | XMS | Encounter Summary ---
Demographics + + + | Address | [address] | | | [place] [address] | + + + | Home Phone | | + + + | Preferred Language | Unknown | + + + | Marital Status | Single | + + + | Restorationist Affiliation | PRO | + + + | Race | White | + + + | Ethnic Group | Not or | + + + Author + + + | Author | [facility] | + + + | Organization | [facility] | + + + | Address | Unknown | + + + | Phone | Unavailable | + + + Support + + +---------+ + | Name | Relationship | Address | Phone | + + +---------+ + | None Per Pt | ECON | Unknown | Unavailable | + + +---------+ + Care Team Providers + +------+ + | Care Certified Alcohol And Drug Counselor Name | Role | Phone | + [...] [address] | | | | | | [place] | | | | | | [address] | | | +--------+ + + + [...]
--- OUTSIDE RECORDS SUMMARY | ~2019-09-10 | XMS | Clinical Summary ---
Demographics + + + | Address | [address] | | | [place] [address] | + + + | Home Phone [...] Team Providers + +------+ + | Care Automated Process Operator Name | Role | Phone | + +------+ + | Susan Fowler NP | PCP | | + +------+ + Source Comments VIVIAN is fully live on both [facility] Ambulatory and [facility] InPatient.[facility] Allergies + + + + + + [...] | | | + +--------+ +--------+-------+---------+--------+ | [employer] MEDICAID | [employer] | xxxxxxxx | 06/15/ | | | [...] | Self | [birth year] | [address] | | | al/Fam | | 1980 | [phone] | [place] [address] | | | beau | | | 4 (Home) | | + +--------+ +--------+ + +"
--- OUTSIDE RECORDS SUMMARY | ~2019-09-10 | XMS | Encounter Summary ---
Demographics + + + | Address | [address] | | | [place] [address] | + + + | Home Phone | | + + + | Preferred Language | Unknown | + + + | Marital Status | Unknown | + + + | Gnosticist Affiliation | Unknown | + + + [...] Team Providers + +------+ + | Care Meeting Coordinator Name | Role | Phone | [...] Provider Unknown | | | | | [place], [place] | [phone] | | | | | [address] | | | | | | | [...]
--- OUTSIDE RECORDS SUMMARY | ~2019-09-10 | XMS | Encounter Summary ---
Demographics + + + | Address | [address] | | | [place] [address] | + + + | Home Phone [...] Author + + + | Author | [facility] | + + + | Organization | [facility] | + + + | Address | Unknown | + + + | Phone | Unavailable | + + + Support + + +---------+ + | Name | Relationship | Address | Phone | + + +---------+ + | None Per Pt | ECON | Unknown | Unavailable | + + +---------+ + Care Team Providers + +------+ + | Care Nitrogen Operator Name | Role | Phone | + +------+ + | Susan Fowler SURVEILLANCE MONITOR | PCP | | + +------+ + [...] | s kyphosis | [address] | [place], [place] | | | | | Thoracic | [place] | [address] | | | | | spondylosis | [address] | Phone: | | | | | with | Phone: | [phone] | | | | | myelopathy | [phone] | Fax: | | | | | Deconditione | Fax: | [phone] | | | | | d low back | [phone] | | | | | | Procedures [...] | | | | [address] | [address] | | | | | | s kyphosis | [address] | | | | | | Thoracic | [place], [place] | | | | | | spondylosis | [address] | | | | | | with | Phone: | | | | | | myelopathy | [phone] | | | | | | Deconditione | Fax: | | | | | | d low back | [phone] | | | | | | Procedures [...] Closed | | Orthopedics | Diagnoses | [place], | [place], | | | | | 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, | 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 Jaiden | MD [address] | | | | | sis of | Yvonne | HIMANSHU Paz | | | | | spine, site | [address] | [place], [place] | | | | | unspecified | [address] | [address] | | | | | | [address] | Phone: | | | | | | [place], | [phone] | | | | | | [place] [address] | Fax: | | | | | | Phone: | [phone] | | | | | | [phone] | | | | | | | Fax: | | | | | | | [phone] | | +--------+--------+ + + + + Encounter Details +--------+---------+ + + + | Date | Type | Department | Care Team | Description | +--------+---------+ + + + | 12/09/ | Office | Orthopaedics at | [facility] | Chronic mid back | | 2016 | Visit | [facility] [address] | Rodrigo Morales MD [address] | pain (Primary Dx); | | | | [address] | [address] | [facility] | | | | Mailcode: 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 Weekly physical activity [...] time. Consult to external PT. Consult to [facility]. RTC in 3-6 months [...]
--- OUTSIDE RECORDS SUMMARY | ~2019-09-10 | XMS | Encounter Summary ---
Demographics + + + | Address | [address] | | | [place] [address] | + + + | Home Phone | | + + + | Preferred Language | Unknown | + + + | Marital Status | Unknown | + + + | Anabaptist Affiliation | Unknown | + + + [...] Team Providers + +------+ + | Care Theatrical Trouper Name | Role | Phone | + [...] Provider Unknown | | | | | [place], [place] | [phone] | | | | | [address] | | | | | | | [...]
--- OUTSIDE RECORDS SUMMARY | ~2019-09-10 | XMS | Encounter Summary ---
Demographics + + + | Address | [address] | | | [place] [address] | + + + | Home Phone | | + + + | Preferred Language | Unknown | + + + | Marital Status | Single | + + + | Episcopalian Affiliation | PRO | + + + | Race | White | + + + | Ethnic Group | Not or | + + + Author + + + | Author | [facility] | + + + | Organization | [facility] | + + + | Address | Unknown | + + + | Phone | Unavailable | + + + Support + + +---------+ + | Name | Relationship | Address | Phone | + + +---------+ + | None Per Pt | ECON | Unknown | Unavailable | + + +---------+ + Care Team Providers + +------+ + | Care Mortgage Manager Name | Role | Phone | [...] | 2013 | Only | Department | [place] [address] | | | | | | [place] | | | | | | [address] | | | | | | [phone] | | | | | | | [...] + + + | HAND 2 VIEW 11790 | Routin | 08/09/2014 | | Results for this | | | e | 7:56 PM | | procedure are in the | | | | PST | | results section. | + +--------+ + + + | FOREARM 2 VIEW [id number] | Routin | 08/09/2014 | | Results [...] [facility] | | | URINE | [facility] | | A MEDICAL | | | [...] | + + + + + | [facility] | And | [place] [address] | [phone] | | MEDICAL CENTER | Streets | [...] | SOURCE | CLEAN CATCH | | [facility] | | | | | | A [...] [place] | And | [place] [address] | [phone] | | MEDICAL CENTER | Streets | [...] + | [facility] | | [place] [address] | [phone] | | MEDICAL CENTER | Streets | [...] | FASTING? | UNK | HR | [facility] | | | | | | A [...] + + | [facility] | And | [place] [address] | [phone] | | MEDICAL CENTER | Streets | | | + + + + + FOREARM 2 VIEW [id number] (08/09/2014 7:56 PM PST) + + | [...] + +---------+ + + HAND 2 VIEW [id number] (08/09/2014 7:56 PM PST) + + | [...]
--- OUTSIDE RECORDS SUMMARY | ~2019-09-10 | XMS | Clinical Summary ---
Demographics + + + | Address | [address] | | | [place] [address] | + + + | Home Phone | | + + + | Preferred Language | Unknown | + + + | Marital Status | | + + + | Hinduism Affiliation | Unknown | + + + | Race | Unknown | + + + | Ethnic Group | Unknown | + + + Author + + + | Author | [facility] [employer] (Historical as of | | | 04-20-19) | + + + | Organization | [facility] [employer] (Historical as of | | | 04-20-19) [...] Team Providers + +------+ + | Care Stem Maker Name | Role | Phone | + +------+ + | Susan Fowler MILIEU COORDINATOR | PP | Unavailable | + +------+ [...] +------+-------+ + | MEDICAID | [place] | [id number] | | | [address] | | | N | | | | [place] | | | [place] | | | | [address] | | | EXTRUSION FORMER | | | | | + +--------+ [...] | beau | | | [address] | [address] | + +--------+ +--------+ + +"
--- OUTSIDE RECORDS SUMMARY | ~2019-09-10 | XMS | Encounter Summary ---
Demographics + + + | Address | [address] | | | [place] [address] | + + + | Home Phone | | + + + | Preferred Language | Unknown | + + + | Marital Status | Single | + + + | Rastafarian Affiliation | PRO | + + + | Race | White | + + + | Ethnic Group | Not or | + + + Author + + + | Author | [facility] | + + + | Organization | [facility] | + + + | Address | Unknown | + + + | Phone | Unavailable | + + + Support + + +---------+ + | Name | Relationship | Address | Phone | + + +---------+ + | None Per Pt | ECON | Unknown | Unavailable | + + +---------+ + Care Team Providers + +------+ + | Care Electrical Cad Technician Name | Role | Phone | + +------+ + | Susan Fowler JAVA DEVELOPER CONSULTANT | PCP | | + +------+ + [...] | | Required | | Degeneration | JAVA DEVELOPER CONSULTANT Good | [address] | | | | | of thoracic | [address] | Ave | | | | | or | [address] | [place], [place] | | | | | thoracolumba | [address] | [address] | | | | | r | [address] | Phone: | | | | | intervertebr | [address], | [phone] | | | | | al disc | [place] [address] | Fax: | | | | | Juvenile | Phone: | [phone] | | | | | osteochondro | [phone] | | | | | | sis of spine | Fax: | | | | | | [place]: [place] | [phone] | | +--------+ + + + + [...] | | | | Mailcode: PV01 | [facility] [place] | idiopathic (Primary | | | | [facility] | [address] | Dx) | | | | [place], [place] | [phone] | | | | | [address] | | | | | | [phone] | | | +--------+---------+ + + + [...]
--- OUTSIDE RECORDS SUMMARY | ~2019-09-10 | XMS | Encounter Summary ---
Demographics + + + | Address | [address] | | | [place] [address] | + + + | Home Phone | | + + + | Preferred Language | Unknown | + + + | Marital Status | Single | + + + | Anglican Affiliation | PRO | + + + | Race | White | + + + | Ethnic Group | Not or | + + + Author + + + | Author | [facility] | + + + | Organization | [facility] | + + + | Address | Unknown | + + + | Phone | Unavailable | + + + Support + + +---------+ + | Name | Relationship | Address | Phone | + + +---------+ + | None Per Pt | ECON | Unknown | Unavailable | + + +---------+ + Care Team Providers + +------+ + | Care Solar Business Developer Name | Role | Phone | [...] | 2013 | Only | Department | [place] [address] | | | | | | [place] | | | | | | [address] | | | | | | [phone] | | | | | | | [...] + + + | HAND 2 VIEW [id number] | Routin | 08/09/2014 | | Results for this | | | e | 7:56 PM | | procedure are in the | | | | PST | | results section. | + +--------+ + + + | FOREARM 2 VIEW [id number] | Routin | 08/09/2014 | | Results [...] [facility] | | | URINE | [facility] | | A MEDICAL | | | [...] + + + + | [facility] | And | [place] [address] | [phone] | | MEDICAL CENTER | Streets | | | + + + + + MARY PREDAVID ONLY (08/09/2014 8:12 PM PST) + + [...] | SOURCE | CLEAN CATCH | | [facility] | | | | | | [...] [place] | And | [place] [address] | [phone] | | MEDICAL CENTER | Streets | [...] + | [place] | | [place] [address] | [phone] | | MEDICAL CENTER | Streets | [...] | FASTING? | UNK | HR | [facility] | | | | | | [...] + + | [place] | And | [place] [address] | [phone] | | MEDICAL CENTER | Streets | | | + + + + + FOREARM 2 VIEW [id number] (08/09/2014 7:56 PM PST) + + | [...] + +---------+ + + HAND 2 VIEW [id number] (08/09/2014 7:56 PM PST) + + | [...]
--- OUTSIDE RECORDS SUMMARY | 2019-09-10 11:58 | XMS ---
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 Matthias has no Care Guidelines for this patient. Estella VISIT COUNT (12 MO.) 1 GHISLAINE G[place]a TOTAL 1 NOTE: Visits indicate total known visits. ED/UCC VISIT TRACKING (12 MO.) 09/10/2019 11:55 GHISLAINE [place] TYPE: Emergency COMPLAINT: - R HAND SWELLING INPATIENT VISIT TRACKING (12 MO.) No inpatient visits to display in this time frame [email or web address]
[2019-09-10] MEDS ORDERED: LEXAPRO20 MG PO (12:11)
[2019-09-10] MEDS ORDERED: BACTRIM DS TAB1 EACH PO (13:04)
[2019-09-10] MEDS ORDERED: KEFLEX500 MG PO (13:04)
--- NOTE | 2019-09-11 11:22 | CONS ---
[facility] [address] [place], [place] [address] Signed DATE OF CONSULTATION: EMERGENCY ROOM CONSULT REQUESTING PHYSICIAN: Emergency room consult requested by Dr. Clarke. HISTORY OF PRESENT ILLNESS: Lazaro is a 39-year-old male, who has a history of several days of right hand pain. He is quite straight forward. There has been no injury. No penetrating injury of any type. He complains of some pain and discomfort in the mid palm. He says it hurts when he tries to move his fingers. PHYSICAL EXAMINATION: Objectively, both hands are pretty large. He is a very large man. However, there is no erythema. There is no warmth over the palm and the fingers. Both hands are moderately swollen, the right not dramatically more so than the left. He does complain of tenderness to palpation right over the mid palm, but there is no fluctuance, there is no induration. As I engage him in conversation, I can move all of his fingers through full range of motion without increasing his pain response. He does complain of increased pain if he attempts to flex the fingers by himself. He has good sensation in the tips of all of his fingers, and the nail beds are all pink with a quick capillary refill. DIAGNOSTIC DATA: At the present time, there does not appear to be any lab or imaging available. ASSESSMENT AND PLAN: Based on examination, there is really not much evidence for a serious process at this time. There is really no warmth. There is no in duration. There is no fluctuance and although he complains of discomfort with motion, passive range of motion does not significantly increase his pain. He also has a long history of chronic pain issues. Based on today's examination, I do not think there is any indication for surgical intervention. It might be worthwhile to put him on some antibiotics and I might suggest Bactrim. Given his lifestyle, he might seem to be a potential risk for MRSA. I told him we would be happy to see him back in the clinic in a couple of days or he can certainly return sooner if things appear to deteriorate significantly in the interim. Eduardo Amador MD WFB/MODL Electronically Signed By: EDUARDO AMADOR MD 09/11/19 1122 PAT[facility] DATE OF : 82 REPORT #: [id number] PHYSICIAN: EDUARDO AMADOR MD PCP: LIANNE RAMOS MD REPORT IS CONFIDENTIAL AND NOT TO BE RELEASED WITHOUT AUTHORIZATION [facility] [address] [place] [address] [place] [address] Signed /[id number] Copies: ~ Electronically Signed By: EDUARDO AMADOR MD 09/11/19 1122 PATIENT NAME: [facility] DATE OF : 82 REPORT #: [id number] PHYSICIAN: EDUARDO AMADOR MD PCP: LIANNE RAMOS MD REPORT IS CONFIDENTIAL AND NOT TO BE RELEASED WITHOUT AUTHORIZATION
== END 2019-09-10 13:14 | disposition home or self-care (01) ==
LOC: ED 11:54
DX: L03.113 Cellulitis of right upper limb (principal); F41.9 Anxiety disorder, unspecified; F32.9 Major depressive disorder, single episode, unspecified; Z91.013 Allergy to seafood; Z79.899 Other long term (current) drug therapy
CPT/HCPCS: 99283; A9270

== ENCOUNTER 2019-09-12 12:39 | Emergency (ER) | payer OTHER ==
[~2019-09-12] VITALS: Ht 182.9 cm; Wt 140.6 kg
--- OUTSIDE RECORDS SUMMARY | ~2019-09-12 | XMS | Encounter Summary ---
Demographics + + + | Address | [address] | | | [place] [address] | + + + | Home Phone | | + + + | Preferred Language | Unknown | + + + | Marital Status | Single | + + + | Restorationism Affiliation | PRO | + + + | Race | White | + + + | Ethnic Group | Not or | + + + Author + + + | Author | [facility] | + + + | Organization | [facility] | + + + | Address | Unknown | + + + | Phone | Unavailable | + + + Support + + +---------+ + | Name | Relationship | Address | Phone | + + +---------+ + | None Per Pt | ECON | Unknown | Unavailable | + + +---------+ + Care Team Providers + +------+ + | Care Mission Manager Name | Role | Phone | + +------+ + | Susan Fowler NP | PCP | | + +------+ + Encounter Details +--------+ + + + + | Date | Type | Department | Care Team | Description | +--------+ + + + + | 08/09/ | Results | NON-[facility] | Elis Crandall, | | | 2013 | Only | Department | [place] [address] | | | | | | [place] | | | | | | [address] | | | | | | [phone] | | | | | | | | +--------+ + + + + Social History + +-------+ +--------+------+ | Tobacco Use | Types | Packs/Day | Years | Date | | | | | Used | | + +-------+ +--------+------+ | Never Assessed | | | | | + +-------+ +--------+------+ + + + | Sex Assigned at | Date Recorded | | | | + + + | Not on file | | + + + + + + + | Job Start Date | Occupation | Industry | + + + + | Not on file | Not on file | Not on file | + + + + + + + + | Travel History | Travel Start | Travel End | + + + + + + | No recent travel history available. | + + documented as of this encounter Plan of Treatment Not on filedocumented as of this encounter Procedures + +--------+ + + + | Procedure Name | Priori | Date/Time | Associated Diagnosis | Comments | | | ty | | | | + +--------+ + + + | DAB PANEL | Routin | 08/09/2014 | | Results for this | | | e | 8:12 PM | | procedure are in the | | | | PST | | results section. | + +--------+ + + + | JAVIER HERNANDEZ ONLY | Routin | 08/09/2014 | | Results for this | | | e | 8:12 PM | | procedure are in the | | | | PST | | results section. | + +--------+ + + + | CBC W/DIFF, REFLEX | Routin | 08/09/2014 | | Results for this | | | e | 8:05 PM | | procedure are in the | | | | PST | | results section. | + +--------+ + + + | BASIC METABOLIC SET | Routin | 08/09/2014 | | Results for this | | (NA, K, CL, TCO2, | e | 8:05 PM | | procedure are in the | | BUN, CR, GLU, CA) | | PST | | results section. | + +--------+ + + + | HAND 2 VIEW [id number] | Routin | 08/09/2014 | | Results for this | | | e | 7:56 PM | | procedure are in the | | | | PST | | results section. | + +--------+ + + + | FOREARM 2 VIEW [id number] | Routin | 08/09/2014 | | Results for this | | | e | 7:56 PM | | procedure are in the | | | | PST | | results section. | + +--------+ + + + documented in this encounter Results DAB PANEL (08/09/2014 8:12 PM PST) + + + + + + | Component | Value | Ref Range | Performed | Pathologist | | | | | At | Signature | + + + + + + | BARBITURATE | Negative | | [facility] | | | SCREEN, | | | A MEDICAL | | | URINE | | | CENTER | | + + + + + + | COCAINE | Negative | | [facility] | | | URINE | | | A MEDICAL | | | SCREEN | | | CENTER | | + + + + + + | AMPHETAMINE | PositiveComment: @[id number] | | [facility] | | | URINE | Jacklyn Fowler@RESU | | A MEDICAL | | | SCREEN | LT CALLED TO AND READ | | CENTER | | | | BACK BY: REGGIE | | | | | | | | | | + + + + + + | CANNABINOID | Negative | | [facility] | | | UR | | | A MEDICAL | | | | | | CENTER | | + + + + + + | PCP URINE | Negative | | [facility] | | | | | | A MEDICAL | | | | | | CENTER | | + + + + + + | BENZODIAZEP | Negative | | [facility] | | | INE SCR, UR | | | A MEDICAL | | | | | | CENTER | | + + + + + + | PROPOXYPHEN | Negative | NG/ML | [facility] | | | E | | | A MEDICAL | | | | | | CENTER | | + + + + + + | METHADONE | Negative | NG/ML | [facility] | | | SCR, UR | | | A MEDICAL | | | | | | CENTER | | + + + + + + | METHAQUALON | Negative | NG/ML | [facility] | | | E | | | A MEDICAL | | | | | | CENTER | | + + + + + + | OPIATES 300 | PositiveComment: @[phone] | | [facility] | | | URINE | [facility] | | A MEDICAL | | | SCREEN | LT CALLED TO AND READ | | CENTER | | | | BACK BY: REGGIE | | | | | | | | | | + + + + + + + + | Specimen | + + | | + + + + + + + | Performing | Address | City/State/Zipcode | Phone Number | | Organization | | | | + + + + + | [facility] | | | | | LABORATORY | | | | + + + + + | [facility] | And | [place] [address] | [phone] | | MEDICAL CENTER | Streets | | | + + + + + MARY PERDAVID ONLY (08/09/2014 8:12 PM PST) + + + + + + | Component | Value | Ref Range | Performed | Pathologist | | | | | At | Signature | + + + + + + | COLOR(UR) | Light-Yellow | YELLOW | [facility] | | | | | | A MEDICAL | | | | | | CENTER | | + + + + + + | APPEARANCE | Clear | CLEAR | [facility] | | | | | | A MEDICAL | | | | | | CENTER | | + + + + + + | SPECIFIC | 1.009 | 1.005 - 1.030 | [facility] | | | GRAVITY | | | A MEDICAL | | | | | | CENTER | | + + + + + + | PH(UR) | 5.5 | 5.0 - 8.0 | [facility] | | | | | | A MEDICAL | | | | | | CENTER | | + + + + + + | PROTEIN, UA | NEG | NEGATIVE | [facility] | | | | | | A MEDICAL | | | | | | CENTER | | + + + + + + | GLUCOSE, UA | NEG | NEGATIVE | [facility] | | | | | | A MEDICAL | | | | | | CENTER | | + + + + + + | KETONES, UA | NEG | NEGATIVE | [facility] | | | | | | A MEDICAL | | | | | | CENTER | | + + + + + + | BILIRUBIN | NEG | NEGATIVE | [facility] | | | | | | A MEDICAL | | | | | | CENTER | | + + + + + + | BLOOD | NEG | NEGATIVE | [facility] | | | | | | A MEDICAL | | | | | | CENTER | | + + + + + + | NITRITES | NEG | NEGATIVE | [facility] | | | | | | A MEDICAL | | | | | | CENTER | | + + + + + + | LEUKOCYTE | NEG | NEGATIVE | [facility] | | | ESTERASE | | | A MEDICAL | | | | | | CENTER | | + + + + + + | UROBILINOGE | NEG | NEGATIVE MG/DL | [facility] | | | N | | | A MEDICAL | | | | | | CENTER | | + + + + + + | SOURCE | CLEAN CATCH | | [facility] | | | | | | A [facility] | | | | | | CENTER | | + + + + + + + + | Specimen | + + | | + + + + + + + | Performing | Address | City/State/Zipcode | Phone Number | | Organization | | | | + + + + + | [facility] | And | [place] [address] | [phone] | | MEDICAL CENTER | Stre[address] | | | + + + + + CBC W/IJEOMA MORRIS (08/09/2014 8:05 PM PST) + +-------+ + + + | Component | Value | Ref Range | Performed | Pathologist | | | | | At | Signature | + +-------+ + + + | WHITE BLOOD | 7.9 | 3.2 - 11.0 X10 | [facility] | | | CELL COUNT | | 3/uL | A MEDICAL | | | | | | CENTER | | + +-------+ + + + | HEMOGLOBIN | 13.1 | 12.0 - 18.0 | [facility] | | | | | g/dL | A MEDICAL | | | | | | CENTER | | + +-------+ + + + | RED BLOOD | 4.52 | 3.5 - 6.0 X10 | [facility] | | | CELL COUNT | | 6/uL | A MEDICAL | | | | | | CENTER | | + +-------+ + + + | HEMATOCRIT | 38.4 | 37.0 - 52.0 % | [facility] | | | | | | A MEDICAL | | | | | | CENTER | | + +-------+ + + + | MCV | 84.9 | 82 - 100 fL | [facility] | | | | | | A MEDICAL | | | | | | CENTER | | + +-------+ + + + | MCH | 29.1 | 28.0 - 34.7 pg | [facility] | | | | | | A MEDICAL | | | | | | CENTER | | + +-------+ + + + | MCHC | 34.2 | 32 - 36 g/dL | [facility] | | | | | | A MEDICAL | | | | | | CENTER | | + +-------+ + + + | RDW | 12.5 | 12 - 16 % | [facility] | | | | | | A MEDICAL | | | | | | CENTER | | + +-------+ + + + | PLATELET | 259 | 140 - 350 X10 3 | [facility] | | | COUNT | | | A MEDICAL | | | | | | CENTER | | + +-------+ + + + | MPV | 8.6 | 7.0 - 12.0 fL | [facility] | | | | | | A MEDICAL | | | | | | CENTER | | + +-------+ + + + | NEUTROPHIL | 66.5 | 40 - 80 % | [facility] | | | % | | | A MEDICAL | | | | | | CENTER | | + +-------+ + + + | LYMPHOCYTE | 20.0 | 15 - 45 % | [facility] | | | % | | | A MEDICAL | | | | | | CENTER | | + +-------+ + + + | EOS % | 4.0 | 0 - 6.0 % | [facility] | | | | | | A MEDICAL | | | | | | CENTER | | + +-------+ + + + | BASO % | 1.2 | 0 - 2.0 % | [facility] | | | | | | A MEDICAL | | | | | | CENTER | | + +-------+ + + + | MONOCYTE % | 8.3 | 4.0 - 12.0 % | [facility] | | | | | | A MEDICAL | | | | | | CENTER | | + +-------+ + + + + + | Specimen | + + | | + + + + + + + | Performing | Address | City/State/Zipcode | Phone Number | | Organization | | | | + + + + + | [facility] | | [place] [address] | [phone] | | MEDICAL CENTER | Stre[address] | | | + + + + + BASIC METABOLIC SET (NA, K, CL, TCO2, BUN, CR, GLU, CA) (08/09/2014 8:05 PM PST) + + + + + + | Component | Value | Ref Range | Performed | Pathologist | | | | | At | Signature | + + + + + + | SODIUM, | 137 | 137 - 146 MEQ/L | [facility] | | | PLASMA | | | A MEDICAL | | | (LAB) | | | CENTER | | + + + + + + | POTASSIUM, | 4.1 | 3.5 - 5.2 MEQ/L | [facility] | | | PLASMA | | | A MEDICAL | | | (LAB) | | | CENTER | | + + + + + + | CO2 | 24 | 22 - 28 MEQ/L | [facility] | | | | | | A MEDICAL | | | | | | CENTER | | + + + + + + | CHLORIDE, | 105 | 98 - 106 MEQ/L | [facility] | | | PLASMA | | | A MEDICAL | | | (LAB) | | | CENTER | | + + + + + + | ANION GAP | 12.1 | 8 - 16 MEQ/L | [facility] | | | | | | A MEDICAL | | | | | | CENTER | | + + + + + + | GLUCOSE, | 78 | 70 - 105 MG/DL | [facility] | | | PLASMA | | | A MEDICAL | | | (LAB) | | | CENTER | | + + + + + + | BUN, PLASMA | 8 | 8 - 30 MG/DL | [facility] | | | (LAB) | | | A MEDICAL | | | | | | CENTER | | + + + + + + | CREATININE | 0.78 (L) | 0.9 - 1.3 MG/DL | [facility] | | | PLASMA | | | A MEDICAL | | | (LAB) | | | CENTER | | + + + + + + | BUN/CREATIN | 10 | 6 - 20 RATIO | [facility] | | | INE RATIO | | | A MEDICAL | | | | | | CENTER | | + + + + + + | CALCIUM, | 8.9 | 8.5 - 10.8 | [facility] | | | PLASMA | | MG/DL | A MEDICAL | | | (LAB) | | | CENTER | | + + + + + + | ESTIMATED | >60.0 | >60 | [facility] | | | GFR | | | A MEDICAL | | | | | | CENTER | | + + + + + + | FASTING? | UNK | HR | [facility] | | | | | | A MEDICAL | | | | | | CENTER | | + + + + + + + + | Specimen | + + | | + + + + + + + | Performing | Address | City/State/Zipcode | Phone Number | | Organization | | | | + + + + + | [facility] | And | [place] [address] | [phone] | | MEDICAL CENTER | Stre[address] | | | + + + + + FOREARM 2 VIEW [id number] (08/09/2014 7:56 PM PST) + + | Specimen | + + | | + + + + + | Narrative | Performed At | + + + | LEFT FOREARM SERIES INDICATIONS: Possible metallic foreign body. | [facility] | | FINDINGS: AP and lateral views of the left forearm were obtained. No | DEPARTMENT OF | | fracture or dislocation is present. No radiopaque foreign bodies are | RADIOLOGY | | identified. IMPRESSION: Normal left forearm. | | + + + + + | Procedure Note | + + | Interface, Radiology Results - 04/06/2015 6:43 PM PDT LEFT FOREARM SERIES | | INDICATIONS: Possible metallic foreign body. | | FINDINGS: AP and lateral views of the left forearm were obtained. No | | fracture or dislocation is present. No radiopaque foreign bodies are | | identified. | | IMPRESSION: Normal left forearm. | + + + +---------+ + + | Performing | Address | City/State/Zipcode | Phone Number | | Organization | | | | + +---------+ + + | [facility] | | | | | RADIOLOGY | | | | + +---------+ + + HAND 2 VIEW [id number] (08/09/2014 7:56 PM PST) + + | Specimen | + + | | + + + + + | Narrative | Performed At | + + + | LEFT HAND SERIES INDICATIONS: Swelling. Assess for foreign body. | [facility] | | FINDINGS: AP and lateral views of the left hand were obtained. Soft | DEPARTMENT OF | | tissue swelling is present diffusely. No fractures are identified. No | RADIOLOGY | | radiopaque foreign bodies are noted. Subchondral cysts are | | | incidentally noted in the distal pole of the navicular. IMPRESSION: | | | Soft tissue swelling. No radiopaque foreign bodies. | | + + + + + | Procedure Note | + + | Interface, Radiology Results - 04/06/2015 6:43 PM PDT LEFT HAND SERIES | | INDICATIONS: Swelling. Assess for foreign body. | | FINDINGS: AP and lateral views of the left hand were obtained. Soft | | tissue swelling is present diffusely. No fractures are identified. No | | radiopaque foreign bodies are noted. Subchondral cysts are | | incidentally noted in the distal pole of the navicular. | | IMPRESSION: Soft tissue swelling. No radiopaque foreign bodies. | + + + +---------+ + + | Performing | Address | City/State/Zipcode | Phone Number | | Organization | | | | + +---------+ + + | [facility] | | | | | RADIOLOGY | | | | + +---------+ + + documented in this encounter Visit Diagnoses Not on filedocumented in this encounter"
--- OUTSIDE RECORDS SUMMARY | ~2019-09-12 | XMS | Encounter Summary ---
Demographics + + + | Address | [address] | | | [place] [address] | + + + | Home Phone | | + + + | Preferred Language | Unknown | + + + | Marital Status | Single | + + + | Yazidi Affiliation | PRO | + + + | Race | White | + + + | Ethnic Group | Not or | + + + Author + + + | Author | [facility] | + + + | Organization | [facility] | + + + | Address | Unknown | + + + | Phone | Unavailable | + + + Support + + +---------+ + | Name | Relationship | Address | Phone | + + +---------+ + | None Per Pt | ECON | Unknown | Unavailable | + + +---------+ + Care Team Providers + +------+ + | Care Piano Refinisher Name | Role | Phone | + +------+ + | Susan Fowler NP | PCP | | + +------+ + Encounter Details +--------+ + + + + | Date | Type | Department | Care Team | Description | +--------+ + + + + | 08/09/ | Results | NON-[facility] | Elis Crandall, | | | 2013 | Only | Department | [place] [address] | | | | | | [place] | | | | | | [address] | | | | | | [phone] | | | | | | | [...] + + + | HAND 2 VIEW [id number] | Routin | 08/09/2014 | | Results for this | | | e | 7:56 PM | | procedure are in the | | | | PST | | results section. | + +--------+ + + + | FOREARM 2 VIEW [id number] | Routin | 08/09/2014 | | Results [...] [facility] | | | URINE | [facility] | A [facility]ICAL | | [...] | + + + + + | [facility] | And | [place] [address] | [phone] | | MEDICAL CENTER | Streets | [...] | SOURCE | CLEAN CATCH | | [facility] | | | | | | A [...] [facility] | And | [place] [address] | [phone] | | MEDICAL CENTER | Streets | [...] + | [facility] | | [place] [address] | [phone] | | MEDICAL CENTER | Streets | [...] | FASTING? | UNK | HR | [facility] | | | | | | A [...] + + | [facility] | And | [place] [address] | [phone] | | MEDICAL CENTER | Streets | | | + + + + + FOREARM 2 VIEW [id number] (08/09/2014 7:56 PM PST) + + | [...] + +---------+ + + HAND 2 VIEW [id number] (08/09/2014 7:56 PM PST) + + | [...]
--- OUTSIDE RECORDS SUMMARY | ~2019-09-12 | XMS | Clinical Summary ---
Demographics + + + | Address | [address] | | | [place] [address] | + + + | Home Phone | | + + + | Preferred Language | Unknown | + + + | Marital Status | | + + + | Scientologist Affiliation | Unknown | + + + | Race | Unknown | + + + | Ethnic Group | Unknown | + + + Author + + + | Author | [facility] (Historical as of | | | 04-20-19) | + + + | Organization | [facility] (Historical as of | | | 04-20-19) | + + + | Address | Unknown | + + + | Phone | Unavailable | + + + Support + + +---------+ + | Name | Relationship | Address | Phone | + + +---------+ + | Gale Cuenca | ECON | Unknown | | + + +---------+ + Care Team Providers + +------+ + | Care Service Car Driver Name | Role | Phone | + +------+ + | Susan Fowler BULK TRUCK DRIVER | PP | Unavailable | + +------+ + Allergies Not on File Current Medications Not on file Active Problems Not on file Social History + +-------+ +--------+------+ | Tobacco [...] on file | | + + + Plan of Treatment + + + + + | Health Maintenance | Due Date | Last Done | Comments | + + + + + | Vaccine: | | | | | Dtap/Tdap/Td (1 - | 0 | | | | Tdap) | | | | + + + + + | Vaccine: Influenza | | | | | (#1) | 9 | | | + + + + + Results Not on filefrom Last 3 Months Insurance + +--------+ +------+-------+ + | Payer | Benefi | Subscriber | Type | Phone | Address | | | t Plan | ID | | | | | | / | | | | | | | Group | | | | | + +--------+ +------+-------+ + | MEDICAID | [place] | [id number] | | | [address] | | | [place] | | | | [place] | | | [place] | | | | [address] | | | [employer] | | | | | + +--------+ +------+-------+ + + +--------+ +--------+ + + | Guarantor Name | Accoun | Relation to | Date | Phone | Billing Address | | | t Type | Patient | of | | | | | | | | | | + +--------+ +--------+ + + | LAZARO CUENCA | Person | Self [birth year] | Home: | [address] | | | al/Fam | | 1980 | [phone] | [place] | | | beau | | | [address] | [phone] | + +--------+ +--------+ + +"
--- OUTSIDE RECORDS SUMMARY | ~2019-09-12 | XMS | Encounter Summary ---
Demographics + + + | Address | [address] | | | [place] [address] | + + + | Home Phone | | + + + | Preferred Language | Unknown | + + + | Marital Status | Unknown | + + + | Latter Day Affiliation | Unknown | + + + | Race | Unknown | + + + | Ethnic Group | Unknown | + + + Author + + + | Author | [facility] | | | and [place] | + + + | Organization | [facility] | | | [...] Team Providers + +------+ + | Care Development Coach Name | Role | Phone | + [...] Provider Unknown | | | | | [place], [place] | [phone] | | | | | [address] | | | | | | | [...] + +--------+ + + + | CT HEAD CERVICAL | Routin | 06/12/2015 | | Results for this | | SPINE WO CONTRAST | e | 7:45 PM | | procedure are in the | | | | PDT | | results section. | + +--------+ + + + documented in this encounter Results CT Head Cervical Spine wo Contrast (06/12/2015 7:45 PM PDT) + [...] Note | + + | Toño Arredondo Conversion - 04/19/2019 11:30 AM PDT This is a non-reportable procedure | | without a radiologist report and isused for image storage only | + + documented in this encounter Visit Diagnoses + + | Diagnosis | + + | Pain Generalized pain | + + documented in this encounter"
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
--- OUTSIDE RECORDS SUMMARY | ~2019-09-12 | XMS | Encounter Summary ---
Demographics + + + | Address | [address] | | | [place] [address] | + + + | Home Phone | | + + + | Preferred Language | Unknown | + + + | Marital Status | Single | + + + | Protestant Affiliation | PRO | + + + | Race | White | + + + | Ethnic Group | Not or | + + + Author + + + | Author | [facility] | + + + | Organization | [facility] | + + + | Address | Unknown | + + + | Phone | Unavailable | + + + Support + + +---------+ + | Name | Relationship | Address | Phone | + + +---------+ + | None Per Pt | ECON | Unknown | Unavailable | + + +---------+ + Care Team Providers + +------+ + | Care Flanger Name | Role | Phone | + +------+ + | Susan Fowler WOODWORKING [employer] | PCP | | + +------+ + Reason for Visit Consultation (Routine) +--------+ + + + + + | Status | Reason | Specialty | Diagnoses / | Referred By | Referred To | | | | | Procedures | Contact | Contact | +--------+ + + + + + | Closed | Specialty | Neurological | Diagnoses | Malcolm, | Vaniat, | | | Services | Surgery | | Susan Lopes, | Mona Galvan MD | | | Required | | Degeneration | [employer] Good | [address] | | | | | of thoracic | [address] | [address] | | | | | or | [address] | [place], [place] | | | | | thoracolumba | [address] | [address] | | | | | r | [address] | Phone: | | | | | intervertebr | [address], | [phone] | | | | | al disc | [place] [address] | Fax: | | | | | Juvenile | Phone: | [phone] | | | | | osteochondro | [phone] | | | | | | sis of spine | Fax: | | | | | | [place]: [place] | [phone] | | +--------+ + + + + [...] | | | | Mailcode: [id number] | [facility] [place] | idiopathic (Primary | | | | [facility] | [address] | Dx) | | | | [place], [place] | [phone] | | | | | [address] | | | | | | [phone] | | | +--------+---------+ + + + [...]
--- OUTSIDE RECORDS SUMMARY | ~2019-09-12 | XMS | Encounter Summary ---
Demographics + + + | Address | [address] | | | [place] [address] | + + + | Home Phone | | + + + | Preferred Language | Unknown | + + + | Marital Status | Single | + + + | Congregation Affiliation | PRO | + + + | Race | White | + + + | Ethnic Group | Not or | + + + Author + + + | Author | [facility] | + + + | Organization | [facility] | + + + | Address | Unknown | + + + | Phone | Unavailable | + + + Support + + +---------+ + | Name | Relationship | Address | Phone | + + +---------+ + | None Per Pt | ECON | Unknown | Unavailable | + + +---------+ + Care Team Providers + +------+ + | Care Field Insurance Sales Manager Name | Role | Phone | + +------+ + | Susan Fowler NP | PCP | | + +------+ + Encounter Details +--------+ + + + + | Date | Type | Department | Care Team | Description | +--------+ + + + + | 09/15/ | Document-Sc | UNKNOWN DEPARTMENT | Unknown . | | | 2016 | anned | [address] | | | | | | [address] | | | | | | [place] | | | | | | [address] | | | +--------+ + + + [...]
--- OUTSIDE RECORDS SUMMARY | ~2019-09-12 | XMS | Encounter Summary ---
Demographics + + + | Address | [address] | | | [place] [address] | + + + | Home Phone | | + + + | Preferred Language | Unknown | + + + | Marital Status | Single | + + + | Oriental Orthodox Affiliation | PRO | + + + | Race | White | + + + | Ethnic Group | Not or | + + + Author + + + | Author | [facility] | + + + | Organization | [facility] | + + + | Address | Unknown | + + + | Phone | Unavailable | + + + Support + + +---------+ + | Name | Relationship | Address | Phone | + + +---------+ + | None Per Pt | ECON | Unknown | Unavailable | + + +---------+ + Care Team Providers + +------+ + | Care Trim Attacher Name | Role | Phone | + [...] [address] | | | | | | [place] | | | | | | [address] | | | +--------+ + + + [...]
--- OUTSIDE RECORDS SUMMARY | ~2019-09-12 | XMS | Encounter Summary ---
Demographics + + + | Address | [address] | | | [place] [address] | + + + | Home Phone | | + + + | Preferred Language | Unknown | + + + | Marital Status | Unknown | + + + | Jainism Affiliation | Unknown | + + + | Race | Unknown | + + + | Ethnic Group | Unknown | + + + Author + + + | Author | [facility] | | | and [place] | + + + | Organization | [facility] | | | and [...] Team Providers + +------+ + | Care Package Lift Operator Name | Role | Phone | [...] Provider Unknown | | | | | [place], [place] | [phone] | | | | | [address] | | | | | | | [...]
--- OUTSIDE RECORDS SUMMARY | ~2019-09-12 | XMS | Encounter Summary ---
Demographics + + + | Address | [address] | | | [place] [address] | + + + | Home Phone | | + + + | Preferred Language | Unknown | + + + | Marital Status | Unknown | + + + | Sabianism Affiliation | Unknown | + + + | Race | Unknown | + + + | Ethnic Group | Unknown | + + + Author + + + | Author | [facility] | | | and [place] | + + + | Organization | [facility] | | | [...] Team Providers + +------+ + | Care Stitching Department Supervisor Name | Role | Phone | + [...] Provider Unknown | | | | | [place], [place] | [phone] | | | | | [address] | | | | | | | [...]
--- OUTSIDE RECORDS SUMMARY | ~2019-09-12 | XMS | Encounter Summary ---
Demographics + + + | Address | [address] | | | [place] [address] | + + + | Home Phone | | + + + | Preferred Language | Unknown | + + + | Marital Status | Single | + + + | Sabianist Affiliation | PRO | + + + | Race | White | + + + | Ethnic Group | Not or | + + + Author + + + | Author | [facility] | + + + | Organization | [facility] | + + + | Address | Unknown | + + + | Phone | Unavailable | + + + Support + + +---------+ + | Name | Relationship | Address | Phone | + + +---------+ + | None Per Pt | ECON | Unknown | Unavailable | + + +---------+ + Care Team Providers + +------+ + | Care Duct Maker Name | Role | Phone | + +------+ + | Susan Fowler NP | PCP | | + +------+ + Encounter Details +--------+ + + + + | Date | Type | Department | Care Team | Description | +--------+ + + + + | 08/09/ | Office | [facility] [address] | Chuck Nguyễn, | Progress Note | | 2013 | Visit-Trans | E The | MD [address] | | | | [address] | [place] | [place] | | | | | [address] | [address] | | | | | | [phone] | | | | | | | [...] Chuck Nguyễn MD - 08/10/2014 5:42 AM [facility] [address], [place] [address] LAZARO FIGUEROA DATE OF CONSULTATION: REQUESTING PHYSICIAN(S): [...] q.6 hours for 7 days. LAZARO FIGUEROA [id number] : 81 [id number] ADMIT DATE: 3. Bactrim DS 800/162 tablets every 12 hours for 7 days. 4. Keep arm elevated as much as possible. 5. If fevers, chills, increasing redness, or increasing pain, he is to return for further evaluation. EZEQUIEL/Buddy /[id number] Electronically Signed 08/10/14 0747 MD CAROLINA Chaidez PAUL A [id number] : 81 [id number] ADMIT DATE: documente d in this encounter Plan of Treatment Not on filedocumented as of this encounter Visit Diagnoses Not on filedocumented in this encounter"
--- OUTSIDE RECORDS SUMMARY | ~2019-09-12 | XMS | Encounter Summary ---
Demographics + + + | Address | [address] | | | [place] [address] | + + + | Home Phone | | + + + | Preferred Language | Unknown | + + + | Marital Status | Unknown | + + + | Hoahaoism Affiliation | Unknown | + + + | Race | Unknown | + + + | Ethnic Group | Unknown | + + + Author + + + | Author | [facility] | | | and [place] | + + + | Organization | [facility] | | [...] Team Providers + +------+ + | Care Liquor Runner Name | Role | Phone | + [...] Provider Unknown | | | | | [place], [place] | [phone] | | | | | [address] | | | | | | | [...]
--- OUTSIDE RECORDS SUMMARY | ~2019-09-12 | XMS | Clinical Summary ---
Demographics + + + | Address | [address] | | | [place] [address] | + + + | Home Phone | | + + + | Preferred Language | Unknown | + + + | Marital Status | Single | + + + | Caodaism Affiliation | PRO | + + + [...] Team Providers + +------+ + | Care Shelter Case Manager Name | Role | Phone | + +------+ + | Susan Fowler NP | PCP | | + +------+ + Source Comments VIVIAN is fully live on both [facility] and [facility] Allergies + + + + + + [...] | | | + +--------+ +--------+-------+---------+--------+ | CRIMINAL PSYCHOLOGIST MEDICAID | CRIMINAL PSYCHOLOGIST | [id number] | 06/15/ | | | [...] | Self | [birth year] | [address] | | | al/Fam | | 1980 | [phone] | [place] [address] | | | beau | | | 4 (Home) | | + +--------+ +--------+ + +"
--- OUTSIDE RECORDS SUMMARY | ~2019-09-12 | XMS | Clinical Summary ---
Demographics + + + | Address | [address] | | | [place] [address] | + + + | Home Phone | | + + + | Preferred Language | Unknown | + + + | Marital Status | | + + + | Amish Affiliation | Unknown | + + + | Race | Unknown | + + + | Ethnic Group | Unknown | + + + Author + + + | Author | [facility] (Historical as of | | | 04-20-19) | + + + | Organization | [facility] (Historical as of | | | 04-20-19) [...] Team Providers + +------+ + | Care Personnel Psychologist Name | Role | Phone | + +------+ + | Susan Fowler ASSEMBLY MACHINE OPERATOR | PP | Unavailable | + +------+ [...] +------+-------+ + | MEDICAID | JEN[place]LE | [id number] | | | [address] | | | N | | | | [place] | | | [place] | | | | [address] | | | LIFE SCIENCES MANAGER | | | | | + [...] | beau | | | [address] | [address] | + +--------+ +--------+ + +"
--- OUTSIDE RECORDS SUMMARY | ~2019-09-12 | XMS | Encounter Summary ---
Demographics + + + | Address | [address] | | | [place] [address] | + + + | Home Phone | | + + + | Preferred Language | Unknown | + + + | Marital Status | Single | + + + | Taoism Affiliation | PRO | + + + | Race | White | + + + | Ethnic Group | Not or | + + + Author + + + | Author | [facility] | + + + | Organization | [facility] | + + + | Address | Unknown | + + + | Phone | Unavailable | + + + Support + + +---------+ + | Name | Relationship | Address | Phone | + + +---------+ + | None Per Pt | ECON | Unknown | Unavailable | + + +---------+ + Care Team Providers + +------+ + | Care Entry Level Chemist Name | Role | Phone | + +------+ + | Susan Fowler NP | PCP | | + +------+ + Encounter Details +--------+ + + + + | Date | Type | Department | Care Team | Description | +--------+ + + + + | 09/15/ | Document-Sc | Health Information | Unknown . | | | 2015 | anned | [address] | | | | | | [address] | | | | | | Mailcode: [id number] | | | | | | [facility] | | | | | | [place], [place] | | | | | | [address] | | | | | | [phone] | | | +--------+ + + + [...]
--- OUTSIDE RECORDS SUMMARY | ~2019-09-12 | XMS | Encounter Summary ---
Demographics + + + | Address | [address] | | | [place] [address] | + + + | Home Phone | | + + + | Preferred Language | Unknown | + + + | Marital Status | Single | + + + | Adventism Affiliation | PRO | + + + | Race | White | + + + | Ethnic Group | Not or | + + + Author + + + | Author | [facility] | + + + | Organization | [facility] | + + + | Address | Unknown | + + + | Phone | Unavailable | + + + Support + + +---------+ + | Name | Relationship | Address | Phone | + + +---------+ + | None Per Pt | ECON | Unknown | Unavailable | + + +---------+ + Care Team Providers + +------+ + | Care Bottom Liquor Attendant Name | Role | Phone | + +------+ + | Susan Fowler VACCINES SOLUTIONS SPECIALIST | PCP | | + +------+ + [...] | s kyphosis | [address] | [place], [place] | | | | | Thoracic | [place] | [address] | | | | | spondylosis | [address] | Phone: | | | | | with | Phone: | [phone] | | | | | myelopathy | [phone] | Fax: | | | | | Deconditione | Fax: | [phone] | | | | | d low back | [phone] | | | | | | Procedures [...] | | | | [address] | [address] | | | | | | s kyphosis | [address] | | | | | | Thoracic | [place], [place] | | | | | | spondylosis | [address] | | | | | | with | Phone: | | | | | | myelopathy | [phone] | | | | | | Deconditione | Fax: | | | | | | d low back | [phone] | | | | | | Procedures [...] Closed | | Orthopedics | Diagnoses | [place], | [place], | | | | | 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, | 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 | VACCINES SOLUTIONS SPECIALIST Jaiden | MD Carmen [address] | | | | | sis of | Yvonne | HIMANSHU Paz | | | | | spine, site | [address] | [place], [place] | | | | | unspecified | [address] | [address] | | | | | | [address] | Phone: | | | | | | Jose [address], | [phone] | | | | | | [place] [address] | Fax: | | | | | | Phone: | [phone] | | | | | | [phone] | | | | | | | Fax: | | | | | | | [phone] | | +--------+--------+ + + + + Encounter Details +--------+---------+ + + + | Date | Type | Department | Care Team | Description | +--------+---------+ + + + | 12/09/ | Office | Orthopaedics at | [facility] | Chronic mid back | | 2016 | Visit | [facility] [address] | Rodrigo Morales MD [address] | pain (Primary Dx); | | | | [address] | [address] | [facility] | | | | Mailcode: [id number] | [facility] [place] | kyphosis; Thoracic | | | | [facility] | [address] | spondylosis with | | | | [place], [place] | [phone] | myelopathy; | | | | [address] | | Deconditioned low | | | | [phone] | | back | +--------+---------+ + + [...] Tramadol Seizures Social Hx: 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 Weekly physical activity [...] to mid to low back shazia n. Lzaaro 's condition is chronic, complex, multifactorial and [...] time. Consult to external PT. Consult to [facility]. RTC in 3-6 months or [...]
--- OUTSIDE RECORDS SUMMARY | ~2019-09-12 | XMS | Clinical Summary ---
Demographics + + + | Address | [address] | | | [place] [address] | + + + | Home Phone | | + + + | Preferred Language | Unknown | + + + | Marital Status | Unknown | + + + | Sabianist Affiliation | Unknown | + + + | Race | Unknown | + + + | Ethnic Group | Unknown | + + + Author + + + | Author | [facility] | | | and [place] | + + + | Organization | [facility] | | [...] Team Providers + +------+ + | Care Commercial Singer Name | Role | Phone | + [...] | [employer] | MODA | [id number] | 05/06/20 | [phone] | | Medica | | MEDICAID HMO [...] beau | | | 2 (Home) | [address] | + +--------+ +--------+ + + Advance Directives + + + + + | Type | Date Recorded | Patient | Explanation | | | | Brick Tender | | + + + + + | Power of | | | | | Automatic Trimming Sewer | | | | + + + + + | Advance | | | | | Directive | | | | + + + + +"
--- OUTSIDE RECORDS SUMMARY | ~2019-09-12 | XMS | Encounter Summary ---
Demographics + + + | Address | [address] | | | [place] [address] | + + + | Home Phone | | + + + | Preferred Language | Unknown | + + + | Marital Status | Single | + + + | Sabianism Affiliation | PRO | + + + | Race | White | + + + | Ethnic Group | Not or | + + + Author + + + | Author | [facility] | + + + | Organization | [facility] | + + + | Address | Unknown | + + + | Phone | Unavailable | + + + Support + + +---------+ + | Name | Relationship | Address | Phone | + + +---------+ + | None Per Pt | ECON | Unknown | Unavailable | + + +---------+ + Care Team Providers + +------+ + | Care Experimental Electronics Developer Name | Role | Phone | + +------+ + | Susan Fowler CANAL EQUIPMENT MECHANIC | PCP | | + +------+ + [...] | | Required | | Degeneration | CANAL EQUIPMENT MECHANIC Good | [address] | | | | | of thoracic | [address] | Ave | | | | | or | [address] | [place], [place] | | | | | thoracolumba | [address] | [address] | | | | | r | [address] | Phone: | | | | | intervertebr | Jose [address], | [phone] | | | | | al disc | [place] [address] | Fax: | | | | | Juvenile | Phone: | [phone] | | | | | osteochondro | [phone] | | | | | | sis of spine | Fax: | | | | | | INS: [place] | [phone] | | +--------+ + + + + [...] | | | | Mailcode: [id number] | [facility] [place] | idiopathic (Primary | | | | [facility] | [address] | Dx) | | | | [place], [place] | [phone] | | | | | [address] | | | | | | [phone] | | | +--------+---------+ + + + [...]
--- OUTSIDE RECORDS SUMMARY | ~2019-09-12 | XMS | Clinical Summary ---
Demographics + + + | Address | [address] | | | [place] [address] | + + + | Home Phone | | + + + | Preferred Language | Unknown | + + + | Marital Status | Single | + + + | Church Affiliation | PRO | + + + [...] Team Providers + +------+ + | Care Industrial Waste Treatment Technician Name | Role | Phone | + +------+ + | Susan Fowler NP | PCP | | + +------+ + Source Comments VIVIAN is fully live on both [facility] Ambulatory and [facility] InPatient.[facility] Allergies + + + + + + [...] | | | + +--------+ +--------+-------+---------+--------+ | JUNIOR DESIGNER MEDICAID | JUNIOR DESIGNER | xxxxxxxx | 06/15/ | | | [...] | Self | [birth year] | [address] | | | al/Fam | | 1980 | [phone] | [place] [address] | | | beau | | | 4 (Home) | | + +--------+ +--------+ + +"
--- OUTSIDE RECORDS SUMMARY | ~2019-09-12 | XMS | Clinical Summary ---
Demographics + + + | Address | [address] | | | [place] [address] | + + + | Home Phone | | + + + | Preferred Language | Unknown | + + + | Marital Status | Unknown | + + + | Jewish Affiliation | Unknown | + + + | Race | Unknown | + + + | Ethnic Group | Unknown | + + + Author + + + | Author | [facility] | | | and [place] | + + + | Organization | [facility] | | | [...] Team Providers + +------+ + | Care Top Cleaner Name | Role | Phone | + [...] | [employer] | MOD[employer] | [id number] | 05/06/20 | [phone] | | Medica | | MEDICAID HMO [...] beau | | | 2 (Home) | [address] | + +--------+ +--------+ + + Advance Directives + + + + + | Type | Date Recorded | Patient | Explanation | | | | Wire Twister | | + + + + + | Power of | | | | | Loading Machine Adjuster | | | | + + + + + | Advance | | | | | Directive | | | | + + + + +"
--- OUTSIDE RECORDS SUMMARY | ~2019-09-12 | XMS | Encounter Summary ---
Demographics + + + | Address | [address] | | | [place] [address] | + + + | Home Phone [...] + + + | Author | [facility] | + + + | Organization | [facility] | + + + | Address | Unknown | + + + | Phone | Unavailable | + + + Support + + +---------+ + | Name | Relationship | Address | Phone | + + +---------+ + | None Per Pt | ECON | Unknown | Unavailable | + + +---------+ + Care Team Providers + +------+ + | Care Fire Captain Marine Name | Role | Phone | + +------+ + | uSsan Fowler NP | PCP | | + +------+ + Encounter Details +--------+ + + + + | Date | Type | Department | Care Team | Description | +--------+ + + + + | 09/15/ | Document-Sc | Health Information | Unknown . | | | 2015 | anned | Services [address] | | | | | | Kyle Freddy Santana | | | | | | Mailcode: [id number] | | | | | | [facility] | | | | | | [place], [place] | | | | | | [address] | | | | | | [phone] | | | +--------+ + + + [...]
--- OUTSIDE RECORDS SUMMARY | ~2019-09-12 | XMS | Encounter Summary ---
Demographics + + + | Address | [address] | | | [place] [address] | + + + | Home Phone [...] Author + + + | Author | [facility] | + + + | Organization | [facility] | + + + | Address | Unknown | + + + | Phone | Unavailable | + + + Support + + +---------+ + | Name | Relationship | Address | Phone | + + +---------+ + | None Per Pt | ECON | Unknown | Unavailable | + + +---------+ + Care Team Providers + +------+ + | Care Frame Table Operator Helper Name | Role | Phone | + +------+ + | Susan Fowler NP | PCP | | + +------+ + Encounter Details +--------+ + + + + | Date | Type | Department | Care Team | Description | +--------+ + + + + | 08/09/ | Office | [facility] [address] | [place] Nguyễn, | Progress Note | | 2013 | Visit-Trans | E The | MD [address] | | | | mohamud | [place] | [place] | | | | | [address] | [address] | | | | | | [phone] | | | | | | | [...] Chuck Nguyễn MD - 08/10/2014 5:42 AM [facility] [address], [place] [address] LAZARO FIGUEROA DATE OF CONSULTATION: REQUESTING PHYSICIAN(S): [...] q.6 hours for 7 days. LAZARO FIGUEROA [id number] : 81 [id number] ADMIT DATE: 3. Bactrim DS 800/162 tablets every 12 hours for 7 days. 4. Keep arm elevated as much as possible. 5. If fevers, chills, increasing redness, or increasing pain, he is to return for further evaluation. EZEQUIEL/Buddy /[id number] Electronically Signed 08/10/14 0747 MD CAROLINA Chaidez PAUL A [id number] : 81 [id number] ADMIT DATE: documente d in this encounter Plan of Treatment Not on filedocumented as of this encounter Visit Diagnoses Not on filedocumented in this encounter"
[~2019-09-12 12:39] MED LIST changes: +LEXAPRO20 MG PO
--- OUTSIDE RECORDS SUMMARY | 2019-09-12 12:42 | XMS ---
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 Care History Medical/Surgical 09/11/2019 [facility] Patient has new patient appointment for 10/07/[address] Melara 09/11/2019 [facility] - Patient is currently established with [facility]. If patient is seen in the ED during business hours. Please contact [facility] at [facility]. Care Recommendation: If this patient has had 5 or more Emergency Department visits in the last 12 months.\T\nbsp; Patient will require education on the scope and purpose of the ED as an acute care provider not a Primary Care Provider and should not be utilized for chronic conditions.\T\nbsp; These are guidelines and the provider should exercise clinical judgment when providing care. E.D. VISIT COUNT (12 MO.) [address] [facility] TOTAL 2 NOTE: Visits indicate total known visits. ED/UCC VISIT TRACKING (12 MO.) 09/12/2019 12:40 [facility] [place] TYPE: Emergency COMPLAINT: - RIGHT HAND PAIN, NON INJ 09/10/2019 11:55 [facility] [place] TYPE: Emergency COMPLAINT: - R HAND SWELLING INPATIENT VISIT TRACKING (12 MO.) No inpatient visits to display in this time frame [email or web address]
== END 2019-09-12 14:58 | disposition short-term general hospital (02) ==
LOC: ED 12:39
DX: L02.511 Cutaneous abscess of right hand (principal); F32.9 Major depressive disorder, single episode, unspecified; F41.9 Anxiety disorder, unspecified; Z87.891 Personal history of nicotine dependence; Z91.013 Allergy to seafood; Z88.8 Allergy status to other drugs, medicaments and biological substances; Z79.899 Other long term (current) drug therapy
CPT/HCPCS: 73130; 99284-25; A9270

== ENCOUNTER 2020-10-02 05:55 | Day surgery (SDC) | payer OTHER ==
[~2020-10-02] VITALS: Ht 182.9 cm; Wt 145.4 kg
[2020-10-02] MEDS ORDERED: BUPRENORPHINE HC8 MG SL (06:07)
--- NOTE | 2020-10-02 08:37 | NUR ---
10/02/20 0837 Ana Paula Trammell PT REMOVES ORAL AIRWAY ON HIS OWN AT 0836
--- NOTE | 2020-10-02 08:50 | NUR ---
PT ALERT, ORIENTED AND SOMEWHAT ANXIOUS. THIS IS PT'S FIRST SCOPE, GAVE ENCOURAGEMENT, DR SANTIAGO IN TO VISIT WITH PT. GAVE BLESSING, HIS WILL PICK HIM UP FOLLOWING DC. WILL FOLLOW
--- NOTE | 2020-10-02 11:05 | OR ---
[facility] [address], [place] [address] Signed DATE OF OPERATION: 10/02/2020 SURGEON: Sunny Santiago MD PREOPERATIVE DIAGNOSES: 1. Lack of peripheral IV access. 2. Maternal uncle with colon cancer, age 52. 3. Maternal aunt with colon cancer, age 41. 4. Mother with colon polyps, age 39. POSTOPERATIVE DIAGNOSES: 1. Lack of peripheral IV access. 2. 4 mm polyp at 75 cm. 3. Moderate internal hemorrhoids. PROCEDURES: 1. Placement of right femoral triple-lumen catheter. 2. Colonoscopy with hot biopsy. ESTIMATED BLOOD LOSS: None. INDICATIONS: Lazaro is a 40-year-old gentleman, asked to see me for his initial colonoscopy. He has a strong family history of colon cancer and polyps as described above. Of course, the entire family has been recommended to start colonoscopies before the age of 40. In addition, his dad had pancreatic cancer. There has been no genetic testing for colon cancer in his family. He has no lower GI complaints. In addition, he was a heavy IV drug abuser in the past. Despite our best efforts this morning, we could not obtain peripheral IV access even with the help of ultrasound. Consequently, he required placement of a central venous catheter. In the office I had given him a pamphlet on colonoscopy and we had discussed that together in detail. He understands the nature of the test along with the risks including, but not limited to gas bloating, crampy abdominal pain, bleeding, perforation requiring surgery, and missed diagnosis. Also because of his previous drug abuse and his current need for buprenorphine, he is not a candidate for narcotics and . In these patients, we always have our anesthesia provider to help with infusion of propofol. As always, that proved to be a wang decision. In addition, I spoke with him about his lack of peripheral IV access. I described to him a central venous catheter. He understands there is risk including, but not limited to bleeding, infection, scarring, change in contour of the skin as well as Electronically Signed By: SUNNY SANTIAGO MD 10/02/20 1105 PATIENT NAME: LAZARO FIGUEROA [facility]PER[facility] REPORT DATE OF : 82 REPORT #: [id number] PHYSICIAN: SUNNY SANTIAGO MD PCP: TRUPTI MARQUES PA-C REPORT IS CONFIDENTIAL AND NOT TO BE RELEASED WITHOUT AUTHORIZATION [address] [address] Signed catheter embolization requiring retrieval and pneumothorax requiring chest tube placement. In that regard, we decided to place his central venous catheter in the femoral approach to avoid any chance of pneumothorax. He had expressed and understanding wished to proceed. DESCRIPTION OF PROCEDURE: Lazaro was taken into our operating room and kept in the supine position. His right groin was prepped and draped in the usual sterile fashion. I could palpate his right femoral artery. We injected local anesthetic into the skin and subcutaneous tissues. The femoral vein was encountered on the 1st pass of the needle and the wire was able to feed without any resistance whatsoever. The track was able to dilate in appropriate direction without any resistance. The triple-lumen catheter was inserted over the wire all the way up to the hub. Each port was able to draw and flush dark venous nonpulsatile blood. The triple-lumen catheter was held onto the skin with interrupted silk sutures. Dry plastic occlusive dressing was applied per nursing staff. After this, Lazaro was rotated into the left lateral decubitus position. He was given monitored anesthesia care per our nurse product safety consultant. A digital rectal exam was performed and this was unremarkable. No external hemorrhoids and good sphincter tone. No swelling to his prostate gland. The adult colonoscope was introduced and advanced all around into the cecum under direct visualization of the camera. He did take some abdominal compression in order to advance the scope. His prep was moderate. He would probably benefit from a double bowel prep in the future. Nevertheless, we could easily see the appendiceal orifice and the ileocecal valve. The scope was slowly withdrawn. We found just one small 4 mm polyp back at 75 cm. It was easily biopsied and removed completely with the hot biopsy forceps. There was no diverticulosis. The rectum was unremarkable. Upon retroflexion of scope, we can see he has moderate-sized internal hemorrhoid columns. After this, the gas was suctioned out and the colonoscope removed. Lazaro tolerated procedure quite well. RECOMMENDATIONS: I will see Lazaro back in my office in 7 to 14 days to review his results. He will be on the 5-year rotation. He should consider a double bowel prep in the future. Because of his lack of peripheral IV access, he will always need central venous access for procedures. Sunny Santiago MD Electronically Signed By: SUNNY SANTIAGO MD 10/02/20 1105 PATIENT NAME: LAZARO FIGUEROA [facility] REPORT DATE OF : 82 REPORT #: [id number] PHYSICIAN: SUNNY SANTIAGO MD PCP: TRUPTI MARQUES PA-C REPORT IS CONFIDENTIAL AND NOT TO BE RELEASED WITHOUT AUTHORIZATION [facility] [address] [place] [address] Signed ALB/MODL /[id number] cc: MD Trupti Rojas PA-C Copies: SUNNY SANTIAGO MD ~ Electronically Signed By: SUNNY SANTIAGO MD 10/02/20 1105 PATIENT NAME: LAZARO FIGUEROA [facility] REPORT DATE OF : 82 REPORT #: [id number] PHYSICIAN: SUNNY SANTIAGO MD PCP: TRUPTI MARQUES PA-C REPORT IS CONFIDENTIAL AND NOT TO BE RELEASED WITHOUT AUTHORIZATION
--- NOTE | 2020-10-06 12:07 | PATH ---
[facility] [address] [place], [place] [address] Signed SPECIMEN(S): A COLON POLYP AT 75 CM SPECIMEN SOURCE: A. COLON POLYP AT 75 CM CLINICAL HISTORY: Colonoscopy with poss. biopsy and polypectomy with MAC. Preop: Family history of colon polyps, colon CA. Postop: Colon polyp, internal hemorrhoids. MICROSCOPIC DESCRIPTION: Histologic sections of all submitted blocks are examined by light microscopy. These findings, together with the gross examination, support the pathologic diagnosis. FINAL PATHOLOGIC DIAGNOSIS: Colon, polyp at 75 cm, polypectomy: - Tubular adenoma. - Negative for high-grade dysplasia or malignancy. NAL:cml:C2NR GROSS DESCRIPTION: The specimen, labeled "PM, colon polyp at 75 cm," is received in formalin and consists of one tyson soft tissue fragment that measures 0.2 cm in greatest dimension. The specimen is entirely submitted in cassette (A1). JS (under the direct supervision of a pathologist) The Gross Description was prepared using a voice recognition system. The report was reviewed for accuracy; however, sound-alike word errors, addition and/or deletions may occur. If there is any question about this report, please contact Client Services. PERFORMING LABORATORY: The technical component was performed by [facility], [address] [place] [address] (Camera Repairer: Monica Tabares MD; CLIA# [id number]). [facility] [address] [address] (CLIA# [id number]). Diagnostician: Cindy Begum MD Pathologist Electronically Signed 10/06/2020 PATIENT NAME: KARLA FIGUEROA [facility] DATE OF : 82 REPORT #: [id number] PHYSICIAN: [facility] PCP: ALDO MARQUES PA-C REPORT IS CONFIDENTIAL AND NOT TO BE RELEASED WITHOUT AUTHORIZATION [address] [address] Signed Copies: ~ PATIENT NAME: KARLA FIGUEROA [facility] PATHOLOGY DATE OF : 82 REPORT #: [id number] PHYSICIAN: [facility] PCP: ALDO MARQUES PA-C REPORT IS CONFIDENTIAL AND NOT TO BE RELEASED WITHOUT AUTHORIZATION
== END 2020-10-02 09:10 | disposition home or self-care (01) ==
LOC: DS 05:55
PROVIDERS: ATTEND Colon & Rectal Surgery
PROC: 0DBH8ZX Excision of Cecum, Via Natural or Artificial Opening Endoscopic, Diagnostic (ICD-10-PCS; principal; 2020-10-02 06:45)
PROC: 04HK03Z Insertion of Infusion Device into Right Femoral Artery, Open Approach (ICD-10-PCS; 2020-10-02 06:45)
DX: D12.6 Benign neoplasm of colon, unspecified (principal); K64.8 Other hemorrhoids; F17.220 Nicotine dependence, chewing tobacco, uncomplicated; F32.9 Major depressive disorder, single episode, unspecified; F43.10 Post-traumatic stress disorder, unspecified; Z45.2 Encounter for adjustment and management of vascular access device; Z80.0 Family history of malignant neoplasm of digestive organs; Z83.71 Family history of colonic polyps; Z88.5 Allergy status to narcotic agent; Z91.013 Allergy to seafood
CPT/HCPCS: 00532; 88305; J2704

== ENCOUNTER 2021-05-03 11:28 | Emergency (ER) | payer OTHER ==
[~2021-05-03] VITALS: Ht 182.9 cm; Wt 145.2 kg
--- OUTSIDE RECORDS SUMMARY | 2021-05-03 11:30 | XMS ---
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 Care History Medical/Surgical 09/13/2019 [facility] Patient admitted to [facility] in [place], [place].\T\nbsp; I spoke with him over the phone.\T\nbsp; Had hand surgery last night.\T\nbsp; Patient has an establish care appointment on 10/07/[address] Melara. I\T\nbsp;advised to get a follow up appointment scheduled sooner than that. \T\nbsp;He stated that he will be seeking a PCP elsewhere from [facility]s clinic.\T\ nbsp; I suggested I send a list of local providers.\T\nbsp; He agreed. 09/11/2019 [facility] Patient has new patient appointment for 10/07/[address] Melara 09/11/2019 [facility] - Patient is currently established with [facility]. If patient is seen in the ED during business hours. Please contact [facility] at [facility]. Care Recommendation: If this patient has had 5 or more Emergency Department visits in the last 12 months.\T\nbsp; Patient will require education on the scope and purpose of the ED as an acute care provider not a Primary Care Provider and should not be utilized for chronic conditions.\T\nbsp; These are guidelines and the provider should exercise clinical judgment when providing care. EJosfea. VISIT COUNT (12 MO.) 1 GHISLAINE [facility] TOTAL 1 NOTE: Visits indicate total known visits. ED/UCC VISIT TRACKING (12 MO.) 05/03/2021 11:29 [facility] [place] TYPE: Emergency COMPLAINT: - BACK PAIN INPATIENT VISIT TRACKING (12 MO.) No inpatient visits to display in this time frame [email or web address]
[2021-05-03] MEDS ORDERED: VENLAFAXINE H37.5 MG PO (11:42)
[2021-05-03] MEDS ORDERED: ADVIL200 MG PO (11:43)
[2021-05-03] MEDS ORDERED: NEURONTIN400 MG PO (11:45)
[2021-05-03] MEDS ORDERED: MELOXICAM7.5 MG PO (11:45)
[2021-05-03] MEDS ORDERED: METHOCARBAMOL750 MG PO (11:45)
== END 2021-05-03 12:00 | disposition home or self-care (01) ==
LOC: ED 11:28
DX: S39.012A Strain of muscle, fascia and tendon of lower back, initial encounter (principal); X50.0XXA Overexertion from strenuous movement or load, initial encounter; Z88.5 Allergy status to narcotic agent; Z91.030 Bee allergy status; Z79.899 Other long term (current) drug therapy
CPT/HCPCS: 96372; 99283; J1885